=== PATIENT | female | born 1970 | race Caucasian/White ===

== ENCOUNTER → 2018-10-05 08:01 | Outpatient (POV) | payer BC, SELFPAY | PROVIDERS: Visit Provider Dermatology | DX: Z00.00 Encounter for general adult medical examination without abnormal findings (principal) ==

== ENCOUNTER → 2019-09-20 15:21 | Outpatient (POV) | payer BC, SELFPAY | PROVIDERS: Visit Provider Dermatology | DX: Z00.00 Encounter for general adult medical examination without abnormal findings (principal) ==

== ENCOUNTER → 2019-12-14 14:57 | Outpatient (POV) | payer BC, SELFPAY | DX: Z00.00 Encounter for general adult medical examination without abnormal findings (principal) ==

== ENCOUNTER 2020-08-27 15:00 | Outpatient (RCR) | payer BC, SELFPAY | END 2020-08-27 16:20 | disposition home or self-care (01) | LOC: PT 15:00 | PROVIDERS: Visit Provider Orthopaedic Surgery | DX: M76.31 Iliotibial band syndrome, right leg (principal) | CPT/HCPCS: 20560; 97010; 97014; 97033; 97035; 97110; 97163; 97164; G0283 ==

== ENCOUNTER → 2020-09-25 16:13 | Outpatient (POV) | payer BC, SELFPAY | PROVIDERS: Visit Provider Dermatology | DX: Z00.00 Encounter for general adult medical examination without abnormal findings (principal) ==

== ENCOUNTER → 2021-05-08 13:30 | Outpatient (POV) | payer BC, SELFPAY | DX: Z00.00 Encounter for general adult medical examination without abnormal findings (principal) ==

== ENCOUNTER 2022-01-08 13:16 | Outpatient (CLI) | payer BC, SELFPAY ==
[2022-01-08 13:27] VITALS: BMI 28.6
[2022-01-08 13:30] VITALS: BP 120/61; PULSE 64; RESP 18; TEMP 36.8; O2SAT 98
[2022-01-08 14:01] LABS: Basophils # 0.1 K/mm3 (0-0.2); Basophils % 0.5 % (0.1-2.0); Eosinophils # 0.1 K/mm3 (0.0-0.4); Eosinophils % 1.4 % (0.1-12.0); Hematocrit 43.1 % (37.0-47.0); Hemoglobin 13.8 g/dL (12.2-16.2); Lymphocytes # 0.8 K/mm3 (0.7-4.5); Lymphocytes % 8.3 % (10-50); Mean Corpuscular Hemoglobin 27.8 pg (27.0-31.2); Mean Corpuscular Volume 86.9 fl (81-99); Mean Platelet Volume 8.9 fl (7.4-10.4); Monocytes # 0.2 K/mm3 (0.1-1.0); Monocytes % 2.1 % (1.7-9.3); Neutrophils # 8.2 K/mm3 (1.8-7.8); Neutrophils % 87.7 % (37.0-80.0); Platelet Count 417 K/mm3 (142-424); Red Blood Count 4.95 M/mm3 (4.20-5.40); Red Cell Distribution Width 15.3 % (11.5-17.5); White Blood Count 9.3 K/mm3 (4.8-10.8)
[2022-01-08 14:03] LABS: Chloride 106 mmol/L (98-107); MANUAL DIFFERENTIAL MANUAL DIFFERENTIAL (MANUAL DIFF); Potassium 4.6 mmoL/L (3.5-5.1); Sodium 137 mmol/L (136-145)
--- NOTE | 2022-01-08 14:03 | ECG_ITS ---
APPROVED REPORT Exam: Resting ECG HR:85 bpm ECG Measurements Heart Rate 85 AXES LA 160 P 9 QRSd 79 QRS -19 QT 348 T 30 QTc 390 Conclusion SINUS RHYTHM LOW QRS VOLTAGE IN EXTREMITY LEADS [QRS DEFLECTION < 0.5 mV IN LIMB LEADS] BORDERLINE ECG UNCONFIRMED REPORT Electronically signed by : Arjun Cruz MD 01/08/2022 18:11:40
[2022-01-08 14:05] LABS: Alanine Aminotransferase 19 U/L (12-78); Aspartate Amino Transferase 35 U/L (14-36); Blood Urea Nitrogen 25 mg/dl (7-17); Creatinine Clearance Estimated 134 mL/min (50-200); Estimated Glomerular Filt Rate 89 ml/min (>60); GFR (African American) 107 ML/MIN (>60)
[2022-01-08 14:06] LABS: Albumin Level 3.9 g/dl (3.5-5.0); Albumin/Globulin Ratio 1.3 (1.1-1.8); Alkaline Phosphatase 103 U/L (38-126); Anion Gap 9.6 mEq/L (5-15); Bilirubin,Total 0.6 mg/dl (0.2-1.3); Calcium 8.3 mg/dl (8.4-10.2); Carbon Dioxide 26 mmol/L (22.0-30.0); Globulin 2.9 g/dL (1.3-3.2); Glucose 96 mg/dl (74-100); Magnesium 1.7 mg/dl (1.6-2.3); Total Protein,Serum 6.8 g/dl (6.3-8.2)
[2022-01-08 14:25] LABS: Lymphocytes % 10 % (10-50); Monocytes % 1 % (2-9); Neutrophils % 89 % (42-76); Nucleated Red Blood Cells 1; Platelet Estimate Normal; Total Cells Counted 100
[2022-01-08 15:21] VITALS: BP 135/66; PULSE 70; RESP 18; O2SAT 98
[2022-01-08 16:13] LABS: Microscopic, Urine URINE MICROSCOPIC (MICROSCOPIC)
[2022-01-08 16:23] VITALS: BP 128/68; PULSE 69; RESP 18; O2SAT 97
[2022-01-08 16:42] LABS: Appearance,Urine CLEAR (Clear); Bilirubin,Urine Negative (Negative); Blood, Urine Negative (Negative); Color,Urine YELLOW (Yellow); Glucose,Urine (UA) Negative (Negative); Ketones,Urine 1+ (Negative); Leukocyte Esterase,Urine Negative (Negative); Nitrate,Urine Negative (Negative); PH,Urine 6.5 (5.0-8.5); Protein,Urine Negative (Negative); Specific Gravity, Urine 1.015 (1.005-1.030); Urobilinogen,Urine 0.2 EU/dl (0.2)
[2022-01-08 17:14] LABS: RBC,Urine Occasional #/hpf (0-3); WBC,Urine Occasional #/hpf (0-3)
[2022-01-09 08:25] LABS: FSH 1.8 mIU/mL (.); LH 0.7 mIU/mL (.)
== END 2022-01-08 16:23 | disposition home or self-care (01) ==
LOC: INF 13:18
PROVIDERS: Visit Provider Internal Medicine Adolescent Medicine
DX: I95.89 Other hypotension (principal); E86.0 Dehydration
CPT/HCPCS: 80053; 81001; 83001; 83002; 83735; 85007; 85025; 87086; 93005; 96360; 96375; J2405

== ENCOUNTER 2022-12-23 08:36 | Day surgery (SDC) | payer BC, SELFPAY ==
[2022-12-19 11:58] VITALS: BMI 30.1
--- NOTE | 2022-12-23 08:58 | EXP.ANES.CKL ---
[facility] Disclaimer: The information contained in this section may have been updated after the patient was seen, as this information can be updated by other users. Medical History Arthritis Endometriosis Hiatal hernia History of COVID-19 History of gastroesophageal reflux (GERD) Surgical History Gastric banding status H/O laparoscopy History of S/P lumbar spinal fusion Family History Grandmother Family history of cancer Other Family history of myocardial infarction Family history of stroke Social History Smoking Status: Never smoker alcohol intake: never substance use type: denies use current occupational status: employed Travel in the last 8 weeks: Inside the [place] household members: spouse housing: house [facility] Anesthesia Checklist Patient Identification Patient Identification: Arm Band and Verbal (Name & ) Structural Data Admitted From: Home Planned Operative Procedure/s: Colonoscopy Consent for Planned Operative Procedure(s) Verified: Yes NPO Status Verified Time NPO: 00:00 Airway Assessment C-Spine Mobility Assessed: Yes TMJ Mobility Assessed: Yes Dentition: Good Dentition Neurological Assessment Level of Consciousness: Awake Hx Seizures: No Numbness or tingling in extremities: No Anesthesia Plan Anesthesia Risk discussed: Yes Anesthesia Plan: Verified ASA Class: II Anesthesia Type: MAC
[2022-12-23 09:01] VITALS: BP 131/78; PULSE 100; RESP 18; TEMP 37.4; O2SAT 97
--- NOTE | 2022-12-23 09:02 | P.PCN_ITS ---
Procedure: Date: 12/23/22 Patient Date of :: 1970 Procedure Performed:: Colonoscopy Indications:: Screening Performing Provider:: Cornelius Ng MD Referring Provider:: . Sedation:: Monitored anesthesia care Procedure:: After informed consent was obtained the patient was taken to the endoscopy suite. Sedation ensued after the patient was transferred to the left lateral decubitus position. Pulse, blood pressure, and oxygen saturation were monitored throughout the procedure. Digital rectal exam revealed no significant abnormality. The colonoscope was placed in position. The entire colon was eval uated. The colonoscope was carefully removed and the patient was transferred to recovery in stable condition. Please see findings and specimens below for detail. Findings:: Bowel preparation poor Fairly significant spasticity/lack of relaxation Specimens:: None Recommendations:: Repeat colonoscopy in approximately 6 months with alternate/extended bowel preparation Complications:: No immediate Estimated blood obtained (mL): 0
[2022-12-23 09:11] VITALS: O2SAT 97
[2022-12-23 09:45] VITALS: BP 110/72; PULSE 83; RESP 12; TEMP 36.3; O2SAT 96
[2022-12-23 09:55] VITALS: BP 138/75; PULSE 85; RESP 16; O2SAT 99
[2022-12-23 10:05] VITALS: BP 144/84; PULSE 83; RESP 16; O2SAT 97
[2022-12-23 10:15] VITALS: BP 135/76; PULSE 76; RESP 16; TEMP 36.3; O2SAT 99
== END 2022-12-23 10:19 | disposition home or self-care (01) ==
PROVIDERS: PCP Nurse Practitioner Obstetrics & Gynecology; Visit Provider Surgery
PROC: 0DJD8ZZ Inspection of Lower Intestinal Tract, Via Natural or Artificial Opening Endoscopic (ICD-10-PCS; CPT 45378; principal; 2022-12-23 09:30)
DX: Z12.11 Encounter for screening for malignant neoplasm of colon (principal); Z91.199 Patient's noncompliance with other medical treatment and regimen due to unspecified reason; Z79.899 Other long term (current) drug therapy
CPT/HCPCS: 45378; J1610; J2704

== ENCOUNTER → 2023-10-06 17:20 | Outpatient (CLI) | payer BC, SELFPAY ==
[2023-10-06 19:52] LABS: Thyroid Stimulating Hormone 1.09 uIU/mL (0.465-4.68)
== END ==
PROVIDERS: PCP Internal Medicine; Visit Provider Internal Medicine
DX: E03.9 Hypothyroidism, unspecified (principal)
CPT/HCPCS: 84443

== ENCOUNTER 2023-10-16 12:56 | Emergency (ER) | payer BC, SELFPAY ==
--- NOTE | 2023-10-16 13:07 | EXP.UTC ---
Discharge Plan Disposition Patient Disposition: Home, Self-Care Condition: Good Prescriptions Prescriptions: New cyclobenzaprine 10 mg Tablet 10 mg PO BID PRN (Reason: Muscle Spasm) Qty: 20 0RF methylprednisolone 4 mg Tablets,Dose Pack 4 mg PO DIRECTED 6 Days Qty: 21 0RF Rx Instructions: Take 1 pack as directed for 6 days No Action meloxicam [Mobic] 15 mg tablet 15 mg PO DAILY spironolactone 100 mg tablet 100 mg PO DAILY gabapentin 600 mg tablet 600 mg PO BID furosemide 40 mg tablet 40 mg PO DAILY omeprazole 20 mg capsule,delayed release(DR/EC) 20 mg PO BID levothyroxine 50 mcg tablet 50 mcg PO DAILY drospirenone-e.estradiol-lm.FA 3-0.02-0.451 mg (24) (4) tablet 1 tab PO DAILY Rx Instructions: TAKE 1 TABLET BY MOUTH ONCE DAILY semaglutide (weight loss) 0.25 mg/0.5 mL Pen Injector 0.25 mg SQ WEEKLY Rx Instructions: administer weeks 1 through 4 of therapy Referrals Follow up/Referrals: Kai Persaud MD [Primary Care Provider] - See instructions Activity Restrictions/Add. Instructions Additional Instructions/Restrictions: Go home and rest. It would be best if you rested for the next few days. No heavy lifting. No twisting. Take the oral medications as directed. The muscle relaxer (cyclobenzaprine--Flexeril) will make you drowsy, so don't drive or operate heavy machinery after taking it. Don't start the oral steroids (medrol dose pack) until tomorrow, since you had the shots in here today. Follow up with your regular doctor. GO TO THE ER FOR ANY WORSENING SYMPTOMS OR CONCERN, ESPECIALLY BOWEL OR BLADDER ISSUES, SADDLE AREA NUMBNESS, FEVER, ETC Clinical Impressions Clinical Impression: Fall, Low back pain, Left hip pain Discharge ED Provider: Ac Espino [facility] General Stated complaint: ao 10/14/23 fell hurt right left leg pain Time Seen by Provider: 10/16/23 13:22 History of Present Illness Provider Complaint: She states that she fell 2 days ago and came down on her right hip. Since then she has had low back pain and bilateral hip pain since then. She states that she has numbness and tingling radiates down her left leg at times. She has an history of lumbar spine surgery and fusion. She denies any bowel or bladder issues. Related Data Home Medications Medication Instructions Recorded Confirmed meloxicam 15 mg tablet (Mobic) 15 mg PO DAILY Pain 01/07/22 10/16/23 furosemide 40 mg tablet 40 mg PO DAILY Fluid 02/07/22 10/16/23 gabapentin 600 mg tablet 600 mg PO BID Pain 02/07/22 10/16/23 spironolactone 100 mg tablet 100 mg PO DAILY Heart disease 02/07/22 10/16/23 semaglutide (weight loss) 0.25 0.25 mg SQ WEEKLY Weight loss 12/19/22 10/16/23 mg/0.5 mL subcutaneous pen injector omeprazole 20 mg capsule,delayed 20 mg PO BID 02/11/23 10/16/23 release levothyroxine 50 mcg tablet 50 mcg PO DAILY 08/11/23 10/16/23 drospiren-e.estrad-l.mefol 3 1 tab PO DAILY hormone replacement 10/16/23 10/16/23 mg-0.02 mg-0.451 mg(24)/0.451 mg(4)tablet Previous Rx's Medication Instructions Recorded cyclobenzaprine 10 mg tablet 10 mg PO BID PRN Muscle Spasm #20 10/16/23 tabs methylprednisolone 4 mg tablets in 4 mg PO DIRECTED 6 days #21 tabs 10/16/23 a dose pack Allergies Allergy/AdvReac Type Severity Reaction Status Date / Time No Known Allergies Allergy Verified 08/11/23 14:22 [facility] Disclaimer: The information contained in this section may have been updated after the patient was seen, as this information can be updated by other users. Medical History (Updated 10/16/23 @ 15:18 by Ac Espino APRN) Arthritis Chronic eustachian tube dysfunction Endometriosis Fluid level behind tympanic membrane of both ears Hiatal hernia History of COVID-19 History of gastroesophageal reflux (GERD) Surgical History Gastric banding status H/O laparoscopy History of S/P lumbar spinal fusion Family History Grandmother Family history of cancer Other Family history of myocardial infarction Family history of stroke Social History Smoking Status: Never smoker alcohol intake: never substance use type: denies use current occupational status: employed Travel in the last 8 weeks: [place] the [place] household members: spouse housing: house ROS Obtained: Yes All systems reviewed & no additional complaints except as documented Constitutional Constitutional: Denies chills, Denies fever(s) and Denies frequent falls Eyes Eyes: Denies eye discharge ENT Ears, Nose, Mouth, and Throat: Denies dizziness, Denies otalgia, Denies neck pain and Denies sore throat Cardiovascular Cardiovascular: Denies chest pain Respiratory Respiratory: Denies shortness of breath, Denies chest congestion, Denies cough, Denies stridor and Denies wheezing Gastrointestinal Gastrointestingal: Denies nausea or vomiting Musculoskeletal Musculoskeletal: Reports as per HPI, Denies abnormal gait, Reports back pain, Denies neck pain, Denies numbness and Reports tingling Integumentary/Breasts Skin/Breast: Denies rash Neurologic Neurologic: Reports as per HPI, Denies abnormal gait, Denies burning sensations, Denies dizziness, Denies focal weakness, Denies frequent falls, Denies numbness, Reports paresthesias, Reports radicular pain, Denies sensory deficit and Reports tingling Allergic/Immunologic Allergic/Immunologic: Denies wheezing Physical Exam General General appearance: alert and in no apparent distress Head Head exam: atraumatic, normocephalic and normal inspection Eye Eye exam: Present normal appearance, PERRL and EOMI ENT ENT exam: Present normal exam, normal oropharynx, mucous membranes moist, TM's normal bilaterally and normal external ear exam Neck Neck exam: Present normal inspection, full ROM and trachea midline; Absent meningismus or lymphadenopathy Chest Chest inspection: Present normal inspection and symmetric chest wall rise; Absent tenderness Respiratory Respiratory exam: Present normal lung sounds bilaterally; Absent respiratory distress Cardiovascular Cardiovascular exam: Present regular rate and normal rhythm; Absent JVD Abdominal Exam Abdominal exam: Present soft and normal bowel sounds; Absent distention, tenderness or guarding Extremities Exam Extremities exam: Present normal capillary refill; Absent calf tenderness Expanded Lower Extremity Exam Left: Hip/Pelvis exam: Present normal inspection, full ROM and pelvis stable; Absent tenderness, swelling, ecchymosis, deformity, dislocation, external rotation, internal rotation, shortening of leg, pain on hip/pelvis palpation, hip pain on leg movement, erythema, crepitus, laceration or abrasion Upper leg exam: Present normal inspection and full ROM; Absent tenderness Knee exam: Present normal inspection and full ROM; Absent tenderness Lower leg exam: Present normal inspection, full ROM and Achilles tendon intact; Absent tenderness or Homans' sign Ankle exam: Present normal inspection and full ROM; Absent tenderness Foot/toe exam: Present normal inspection and full ROM; Absent tenderness Neurovascular/Tendon exam: Present normal capillary refill and normal fine/light touch; Absent pulse deficit, motor deficit, sensory deficit, tendon deficit or extremity cold to touch Gait: observed and normal Right: Hip/Pelvis exam: Present normal inspection and full ROM; Absent tenderness, pelvis stable, swelling, ecchymosis, deformity, dislocation, external rotation, internal rotation, shortening of leg, pain on hip/pelvis palpation, hip pain on leg movement, erythema, crepitus, laceration or abrasion Upper leg exam: Present normal inspection and full ROM; Absent tenderness Knee exam: Present normal inspection and full ROM; Absent tenderness Lower leg exam: Present normal inspection and full ROM; Absent tenderness Ankle exam: Present normal inspection and full ROM; Absent tenderness Foot/toe exam: Present normal inspection and full ROM; Absent tenderness Neurovascular/Tendon exam: Present normal capillary refill and normal fine/light touch; Absent pulse deficit, motor deficit, sensory deficit, tendon deficit or extremity cold to touch Gait: observed and normal Back Exam Back exam: Present normal inspection; Absent tenderness Neurological Exam Neurological exam: Present alert, oriented X3, CN II-XII intact, normal gait and reflexes normal; Absent motor sensory deficit Expanded Neurological Exam Speech: Present fluid speech Cranial nerves: Normal: EOM function (II, III, IV, ), facial sensation (V), facial palsy (VII), gag reflex (IX), spinal accessory function (XI) and tongue deviation (XII) Cerebellar function: normal gait Motor strength - LUE: 5/5 Motor strength - RUE: 5/5 Motor strength - LLE: 5/5 Motor strength - RLE: 5/5 Sensory exam upper extremity: Normal: light touch and 2 point discrimination Sensory exam lower extremity: Normal: light touch and 2 point discrimination DTR: 2+: biceps (L), biceps (R), patellar (L), patellar (R), Achilles tendon (L) and Achilles tendon (R) Spinal cord function: Absent saddle anesthesia Psychiatric Psychiatric exam: Present normal affect and normal mood Skin Skin exam: Present warm, dry, intact and normal color Lymphatic Lymphatic Findings: no adenopathy Medical Decision Making Medical Records Medical records reviewed: No I reviewed the patient's medical records. Cesar Inquiry Pt receiving controlled substance: No Radiology Data #1: Image(s): Hip Image Reviewed: Yes I reviewed the patient's radiology image and Yes I have reviewed radiologist's interpretation Preliminary Findings: No Fracture Seen FINAL REPORT CLINICAL HISTORY: Right hip pain after fall COMPARISON: None FINDINGS: RIGHT HIP Two views of the right hip with an AP view of the pelvis demonstrate no acute fracture or dislocation. The joint spaces appear normal. The visualized bony structures are well aligned. No soft tissue abnormality is seen. IMPRESSION: No acute bony abnormality. Reviewed, Interpreted and Dictated by Alec Larry MD Transcribed by Telma Albright Authenticated and . [facility] #2: Image(s): Hip Image Reviewed: Yes I reviewed the patient's radiology image and Yes I have reviewed radiologist's interpretation Preliminary Findings: No Fracture Seen FINAL REPORT CLINICAL HISTORY: FALL pain mainly in left hip COMPARISON: None FINDINGS: LEFT HIP: Two views of the left hip demonstrate no acute fracture or dislocation. The joint spaces appear normal. The visualized bony structures are well aligned. No soft tissue abnormality is seen. IMPRESSION: No acute bony abnormality. Reviewed, Interpreted and Dictated by Alec Larry MD Transcribed by Telma Albright Authenticated and [facility] #3: Image(s): L-Spine Image Reviewed: Yes I reviewed the patient's radiology image and Yes I have reviewed radiologist's interpretation Preliminary Findings: Abnormal and No Fracture Seen FINAL REPORT CLINICAL HISTORY: Low back pain after fall COMPARISON: None FINDINGS: 3 views of the lumbar spine were obtained. There is posterior fusion hardware bridging L3-S1. The hardware is intact. There is no evidence of fracture or dislocation. There is spondylolisthesis of L2 on L3. There is spondylolisthesis of L5 on S1 measuring approximately 1 cm. There is lumbar scoliosis convex to the left measuring about 10 degrees. No paraspinous soft tissue abnormalities identified. IMPRESSION: L3-S1 fusion with spondylolisthesis of L2 on L3 and L5 on S1. Lumbar scoliosis convex to the left. Reviewed, Interpreted and Dictated by Alec Larry MD Transcribed by Telma Albright Authenticated and . [facility]
[2023-10-16 13:10] VITALS: BP 113/78; PULSE 79; RESP 20; TEMP 36.7; O2SAT 98; BMI 22.3
--- NOTE | 2023-10-16 13:20 | XR_ITS ---
FINAL REPORT CLINICAL HISTORY: FALL pain mainly in left hip COMPARISON: None FINDINGS: LEFT HIP: Two views of the left hip demonstrate no acute fracture or dislocation. The joint spaces appear normal. The visualized bony structures are well aligned. No soft tissue abnormality is seen. IMPRESSION: No acute bony abnormality. Reviewed, Interpreted and Dictated by Alec Larry MD Transcribed by Telma Albright Authenticated and [facility]
--- NOTE | 2023-10-16 13:20 | XR_ITS ---
FINAL REPORT CLINICAL HISTORY: Right hip pain after fall COMPARISON: None FINDINGS: RIGHT HIP Two views of the right hip with an AP view of the pelvis demonstrate no acute fracture or dislocation. The joint spaces appear normal. The visualized bony structures are well aligned. No soft tissue abnormality is seen. IMPRESSION: No acute bony abnormality. Reviewed, Interpreted and Dictated by Alec Larry MD Transcribed by Telma Albright Authenticated and [facility]
--- NOTE | 2023-10-16 13:20 | XR_ITS ---
FINAL REPORT CLINICAL HISTORY: Low back pain after fall COMPARISON: None FINDINGS: 3 views of the lumbar spine were obtained. There is posterior fusion hardware bridging L3-S1. The hardware is intact. There is no evidence of fracture or dislocation. There is spondylolisthesis of L2 on L3. There is spondylolisthesis of L5 on S1 measuring approximately 1 cm. There is lumbar scoliosis convex to the left measuring about 10 degrees. No paraspinous soft tissue abnormalities identified. IMPRESSION: L3-S1 fusion with spondylolisthesis of L2 on L3 and L5 on S1. Lumbar scoliosis convex to the left. Reviewed, Interpreted and Dictated by Alec Larry MD Transcribed by Telma Albright Authenticated and . [facility]
[2023-10-16] MEDS: KETOROLAC 60MG/2ML VIAL 60 MG IM (15:10)
[2023-10-16] MEDS: METHYLPREDNISOLONE SOD SUCC 125MG VIAL 125 MG IM (15:10)
[2023-10-16 15:19] VITALS: BP 113/78; PULSE 79; RESP 20; TEMP 36.7; O2SAT 98
== END 2023-10-16 15:25 | disposition home or self-care (01) ==
PROVIDERS: Emergency Provider Nurse Practitioner Family; PCP Internal Medicine
DX: M25.552 Pain in left hip (principal); M25.551 Pain in right hip; M54.59 Other low back pain; W19.XXXA Unspecified fall, initial encounter
CPT/HCPCS: 72100; 73502; 96372; 99204; 99212; G0463

== ENCOUNTER 2023-12-29 11:16 | Outpatient (POV) | payer BC, SELFPAY | END 2023-12-29 23:59 | disposition home or self-care (01) | LOC: SC 11:16 | PROVIDERS: PCP Internal Medicine; Visit Provider Dermatology | DX: Z00.00 Encounter for general adult medical examination without abnormal findings (principal) ==

== ENCOUNTER 2024-03-07 13:22 | Outpatient (POV) | payer BC, SELFPAY ==
--- OUTSIDE RECORDS SUMMARY | 2024-03-07 13:25 | XMS_ITS | Clinical Summary ---
Author Name Unknown Address [address] [place] [address] Phone Organization [facility] Address [address] [place] [address] Phone Care Team Providers Care Radar Repairer Name Role Phone Jaylen CUNNINGHAM, Srinivas Barrera Unavailable [phone] AZALEA MERINO MD Primary Care Provider [phone] Reason for Visit and Chief Complaint INJECTION Problems Includes: Problems addressed during this encounter and other active Problems All Visits Onset Date Resolved Date Provider Condition S tatus Joint Pain in the Right Hip 02/07/2021 Stefano Sacnhez MD Active Last Documented On 1 1:35PM ; [facility] Joint Pain, Localized in the Knee 02/07/2016 lilo Sanchez MD Active Last Documented On 6 3:35PM ; [facility] Plan of Treatment Future Appointments Date Time Location Provi carey INJECTION 03/25/2024 8:00AM [facility] Stevie Goodrich PA-C Last Documented On 4 9:41AM ; [facility] Assessments Includes: Assessments from this encounter No Assessments Recorded Medical Equipment - Implanted Devices Includes: Current Devices No Medical Equipment Recorded Medications Includes: Medications discussed during this encounter and other current Medications Current Medications (continue as prescribed) [facility] Glucosamine HCl Oral Tablet 10/25/2020 Provider: Diagnosis: Last Documented On 1 1:32PM By Susanne Quiroz ; [facility] Mobic 15 MG Oral Tablet 10/25/2020 Provider: Diagnosis: Last Documented On 1 1:33PM By Susanne Quiroz ; [facility] Spironolactone 25 MG Oral Tablet 10/25/2020 Provider : Diagnosis: Last Documented On 1 1:33PM By Susanne Quiroz ; [facility] Beyaz 3-0.02-0.451 MG Oral Tablet 10/25/2020 Provide r: Diagnosis: Last Documented On 1 1:33PM By Susanne Quiroz ; [facility] Gabapentin 300 MG Oral Capsule 10/25/2020 Provider: Diagnosis: Last Documented On 1 1:33PM By Susanne Quiroz ; [facility] Lasix 20 MG Oral Tablet 10/25/2020 Provider: Diagnosis: Last Documented On 1 1:34PM By Susanne Quiroz ; [facility] Medications Administered Includes: Administered Medications from this encounter No Administered Medications Recorded Results Includes: Results discussed during this encounter No Results Recorded For Specified Dates History of Present Illness Includes: History of Present Illness from this encounter No History of Present Illness Recorded Social History No Social History Recorded - Smoking Status Unknown Procedures and Surgical History Includes: Procedures from this encounter Procedures Code Diagnosis Performing Provider Service Location Service Date DRAIN/INJECT, JOINT/BURSA (Bilateral Procedure) Bilateral primary osteoarthritis of knee Stevie Goodrich PA-C [facility] 06/10/2023 Last Documented On 3 2:17PM ; [facility] Triamcinolone/Kenalog, 10mg per cc [id number] Bilateral primary osteoarthritis of knee Stevie Kp FATIMA [facility] 06/10/2023 Last Documented On 3 2:17PM ; [facility] Medical History Includes: Medical History addressed during this encounter No Medical History Recorded Family History Includes: Family History addressed during this encounter No Family History Recorded Review of Systems Includes: Review of Systems from this encounter No Review of Systems Recorded Mental Status Includes: Mental Status from this encounter No Mental Status Recorded Functional Status Includes: Functional Status from this encounter No Functional Status Recorded Physical Exam Includes: Physical Exam from this encounter No Physical Exam Recorded Allergies Includes: Active Allergies No Known Allergies Encounters Encounter Provider Location Date Check-In Time Check-Out Time Diagnosis INJECTION Stevie Goodrich PA-C [facility] 3 9:20AM 9:44AM Insurance Includes: Active Insurance Policies Plan Name Member ID Group # Subscriber Relationship Effect ashly Dates 1 - [facility] [id number] NADERSELENE DAVILAJOCELINE Self 10/19/2014 - Unknown Clinical Notes Includes: Clinical Notes from this encounter No Clinical Notes Recorded
--- OUTSIDE RECORDS SUMMARY | 2024-03-07 13:25 | XMS_ITS | Clinical Summary ---
Author Name Unknown Address [address] [place] [address] Phone Organization [facility] Address [address] [place] [address] Phone Care Team Providers Care Manufactured Buildings Repairer Name Role Phone Jaylen CUNNINGHAM, Srinivas Barrera Unavailable [phone] AZALEA MERINO MD Primary Care Provider [phone] Reason for Visit and Chief Complaint INJECTION Problems Includes: Problems addressed during this encounter and other active Problems All Visits Onset Date Resolved Date Provider Condition S tatus Joint Pain in the Right Hip 02/07/2021 Stefano Sanchez MD Active Last Documented On 1 1:35PM ; [facility] Joint Pain, Localized in the Knee 02/07/2016 lilo Sanchez MD Active Last Documented On 6 3:35PM ; [facility] Plan of Treatment Future Appointments Date Time Location Provi carey INJECTION 03/25/2024 8:00AM [facility] Stevie Goodrich PA-C Last Documented On 4 9:41AM ; [facility] Assessments Includes: Assessments from this encounter No Assessments Recorded Medical Equipment - Implanted Devices Includes: Current Devices No Medical Equipment Recorded Medications Includes: Medications discussed during this encounter and other current Medications Current Medications (continue as prescribed) [facility] Glucosamine HCl Oral Tablet 10/25/2020 Provider: Diagnosis: Last Documented On 1 1:32PM By Susanne Quiroz ; [facility] Mobic 15 MG Oral Tablet 10/25/2020 Provider: Diagnosis: Last Documented On 1 1:33PM By Susanne Quiroz ; [facility] Spironolactone 25 MG Oral Tablet 10/25/2020 Provider : Diagnosis: Last Documented On 1 1:33PM By Susanne Quiroz ; [facility] Beyaz 3-0.02-0.451 MG Oral Tablet 10/25/2020 Provide r: Diagnosis: Last Documented On 1 1:33PM By Susanne Quiroz ; [facility] Gabapentin 300 MG Oral Capsule 10/25/2020 Provider: Diagnosis: Last Documented On 1 1:33PM By Susanne Quiroz ; [facility] Lasix 20 MG Oral Tablet 10/25/2020 Provider: Diagnosis: Last Documented On 1 1:34PM By Susanne Quiroz ; [facility] Medications Administered Includes: Administered Medications from this encounter No Administered Medications Recorded Results Includes: Results discussed during this encounter No Results Recorded For Specified Dates History of Present Illness Includes: History of Present Illness from this encounter No History of Present Illness Recorded Social History No Social History Recorded - Smoking Status Unknown Medical History Includes: Medical History addressed during [...] Check-Out Time Diagnosis INJECTION Stevie Goodrich PA-C [facility] 3 9:17AM 9:48AM Insurance Includes: Active Insurance Policies Plan Name Member ID Group # Subscriber Relationship Effect ashly Dates 1 - [facility] [id number] SUSANNA ESPARZA Self 10/19/2014 - Unknown Clinical Notes Includes: Clinical Notes from this encounter No Clinical Notes Recorded
--- OUTSIDE RECORDS SUMMARY | 2024-03-07 13:25 | XMS_ITS | Clinical Summary ---
Author Name Unknown Address [address] [place] [address] Phone Organization [facility] , [facility] Address [address] [place] [address] Phone Care Team Providers Care Director Database Name Role Phone Jaylen CUNNINGHAM, Srinivas Barrera Unavailable [phone] AZALEA MERINO MD Primary Care Provider [phone] Reason for Visit and Chief Complaint INJECTION Problems Includes: Problems addressed during this encounter and other active Problems All Visits Onset Date Resolved Date Provider Condition S tatus Joint Pain in the Right Hip 02/07/2021 Stefano Sanchez MD Active Last Documented On 1 1:35PM ; [facility], [facility] Joint Pain, Localized in the Knee 02/07/2016 lilo Sanchez MD Active Last Documented On 6 3:35PM ; [facility], [facility] Plan of Treatment Future Appointments Date Time Location Provi carey INJECTION 03/25/2024 8:00AM [facility] Stevie Goodrich PA-C Last Documented On 4 9:41AM ; [facility], [facility] Assessments Includes: Assessments from this encounter No Assessments Recorded Medical Equipment - Implanted Devices Includes: Current Devices No Medical Equipment Recorded Medications Includes: Medications discussed during this encounter and other current Medications Current Medications (continue as prescribed) [facility] Glucosamine HCl Oral Tablet 10/25/2020 Provider: Diagnosis: Last Documented On 1 1:32PM By Susanne Quiroz ; [facility], [facility] Mobic 15 MG Oral Tablet 10/25/2020 Provider: Diagnosis: Last Documented On 1 1:33PM By Susanne Quiroz ; [facility], [facility] Spironolactone 25 MG Oral Tablet 10/25/2020 Provider : Diagnosis: Last Documented On 1 1:33PM By Susanne Quiroz ; [facility], [facility] Beyaz 3-0.02-0.451 MG Oral Tablet 10/25/2020 Provide r: Diagnosis: Last Documented On 1 1:33PM By Susanne Quiroz ; [facility], [facility] Gabapentin 300 MG Oral Capsule 10/25/2020 Provider: Diagnosis: Last Documented On 1 1:33PM By Susanne Quiroz ; [facility], [facility] Lasix 20 MG Oral Tablet 10/25/2020 Provider: Diagnosis: Last Documented On 1 1:34PM By Susanne Quiroz ; [facility], [facility] Medications Administered Includes: Administered Medications from this [...] Procedure) Bilateral primary osteoarthritis of knee Stevie Kp [facility] 09/30/2023 Last Documented On 3 7:34AM ; [facility] Triamcinolone/Kenalog, 10mg per cc J3301 Bilateral primary osteoarthritis of knee Stevie Kp [facility] 09/30/2023 Last Documented On 3 7:34AM ; [facility], [facility] Medical History Includes: Medical History addressed during [...] Check-Out Time Diagnosis INJECTION Stevie Goodrich PA-C [facility] 3 9:33AM 10:16AM Insurance Includes: Active Insurance Policies Plan Name Member ID Group # Subscriber Relationship Effect ashly Dates 1 - [facility] [id number] SUSANNA ESPARZA Self 10/19/2014 - Unknown Clinical Notes Includes: Clinical Notes from this encounter No Clinical Notes Recorded
--- OUTSIDE RECORDS SUMMARY | 2024-03-07 13:25 | XMS_ITS | Clinical Summary ---
Author Name Unknown Address [address] [place] [address] Phone Organization [facility] , [facility] Address [address] [place] [address] Phone Care Team Providers Care Correctional Manager Name Role Phone Jaylen CUNNINGHAM, Srinivas Barrera Unavailable [phone] AZALEA MERINO MD Primary Care Provider [phone] Reason for Visit and Chief Complaint INJECTION Problems Includes: Problems addressed during this encounter and other active Problems All Visits Onset Date Resolved Date Provider Condition S tatus Joint Pain in the Right Hip 02/07/2021 Stefano Sanchez MD Active Last Documented On 1 1:35PM ; [facility], [facility] Joint Pain, Localized in the Knee 02/07/2016 lilo Sanchez MD Active Last Documented On 6 3:35PM ; [facility], [facility] Plan of Treatment Future Appointments Date Time Location Provi carey INJECTION 03/25/2024 8:00AM [facility] Stevie Goodrich PA-C Last Documented On 4 9:41AM ; [facility], [facility] Assessments Includes: Assessments from this encounter No Assessments Recorded Medical Equipment - Implanted Devices Includes: Current Devices No Medical Equipment Recorded Medications Includes: Medications discussed during this encounter and other current Medications Current Medications (continue as prescribed) [facility] Glucosamine HCl Oral Tablet 10/25/2020 Provider: Diagnosis: Last Documented On 1 1:32PM By Susanne Quiroz ; [facility] Mobic 15 MG Oral Tablet 10/25/2020 Provider: Diagnosis: Last Documented On 1 1:33PM By Susanne Quiroz ; [facility] Spironolactone 25 MG Oral Tablet 10/25/2020 Provider : Diagnosis: Last Documented On 1 1:33PM By Susanne Quiroz ; [facility] Beyaz 3-0.02-0.451 MG Oral Tablet 10/25/2020 Provide r: Diagnosis: Last Documented On 1 1:33PM By Susanne Quiroz ; [facility] Gabapentin 300 MG Oral Capsule 10/25/2020 Provider: Diagnosis: Last Documented On 1 1:33PM By Susanne Quiroz ; [facility] Lasix 20 MG Oral Tablet 10/25/2020 Provider: Diagnosis: Last Documented On 1 1:34PM By Susanne Quiroz ; [facility], [facility] Medications Administered Includes: Administered [...] Date Check-In Time Check-Out Time Diagnosis INJECTION Stveie Goodrich PA-C [facility] 3 8:41AM 9:12AM Insurance Includes: Active Insurance Policies Plan Name Member ID Group # Subscriber Relationship Effect ashly Dates 1 - [facility] [id number] SUSANNA ESPARZA Self 10/19/2014 - Unknown Clinical Notes Includes: Clinical Notes from this encounter No Clinical Notes Recorded
--- OUTSIDE RECORDS SUMMARY | 2024-03-07 13:25 | XMS_ITS ---
Author Name Unknown Address [address] [place] [address] Phone Organization [facility] , [facility] Address [address] [place] [address] Phone Care Team Providers Care Singer And Unloader Name Role Phone Jaylen CUNNINGHAM, Srinivas Barrera Unavailable [phone] AZALEA MERINO MD Primary Care Provider [phone] Reason for Referral Date Encounter Description Provider Reason for Referral 02/07/21 INJECTION Stefano maurer MD Referral To Physician 10/25/20 INJECTION Stefano maurer MD Referral To Physician - see pcp for bp 07/12/20 NEW PROBLEM/EST PT Stefano Sanchez MD Referral To Physician Problems Includes: Active, inactive, and resolved Problems All Visits Onset Date Resolved Date Provider Condition S tatus Joint Pain in the Right Hip 02/07/2021 Stefano Sanchez MD Active Last Documented On 1 1:35PM ; [facility] Joint Pain, Localized in the Knee 02/07/2016 lilo Sanchez MD Active Last Documented On 6 3:35PM ; [facility] Plan of Treatment Future Appointments Date Time Location Provi carey INJECTION 03/25/2024 8:00AM [facility] Stevie Goodrich PA-C Last Documented On 4 9:41AM ; [facility] Instructions to patient Instructions for patient See PCP for weight management Last Documented On 1 1:30PM ; [facility] Instructions for patient See PCP for weight management Last Documented On 0 3:36PM ; [facility] Instructions for patient See PCP for weight management Last Documented On 0 8:18AM ; [facility] Instructions for patient See PCP for weight management Last Documented On 9 3:30PM ; [facility] Instructions for patient See PCP for weight management Last Documented On 8 3:00PM ; [facility] Instructions for patient See PCP for weight management Last Documented On 7 8:10AM ; [facility] Instructions for patient See PCP for weight management Last Documented On 7 3:40PM ; [facility] Instructions for patient See PCP for weight management Last Documented On 7 3:19PM ; [facility] Instructions for patient See PCP for weight management Last Documented On 7 10:25AM ; [facility] Instructions for patient See PCP for weight management Last Documented On 6 9:01AM ; [facility] Instructions for patient See PCP for weight management Last Documented On 6 8:32AM ; [facility] Instructions for patient See PCP for weight management Last Documented On 6 8:16AM ; [facility] Instructions for patient See PCP for weight management Last Documented On 6 9:01AM ; [facility] Instructions for patient See PCP for weight management Last Documented On 6 9:26AM ; [facility] Assessments Includes: Assessments for all patient encounters No Assessments Recorded Instructions Includes: Instructions for all patient encounters Instructions to patient Instructions for patient See PCP for weight management Last Documented On 1 1:30PM ; [facility] Instructions for patient See PCP for weight management Last Documented On 0 3:36PM ; [facility] Instructions for patient See PCP for weight management Last Documented On 0 8:18AM ; [facility] Instructions for patient See PCP for weight management Last Documented On 9 3:30PM ; [facility] Instructions for patient See PCP for weight management Last Documented On 8 3:00PM ; [facility] Instructions for patient See PCP for weight management Last Documented On 7 8:10AM ; [facility] Instructions for patient See PCP for weight management Last Documented On 7 3:40PM ; [facility] Instructions for patient See PCP for weight management Last Documented On 7 3:19PM ; [facility] Instructions for patient See PCP for weight management Last Documented On 7 10:25AM ; [facility] Instructions for patient See PCP for weight management Last Documented On 6 9:01AM ; [facility] Instructions for patient See PCP for weight management Last Documented On 6 8:32AM ; [facility] Instructions for patient See PCP for weight management Last Documented On 6 8:16AM ; [facility] Instructions for patient See PCP for weight management Last Documented On 6 9:01AM ; [facility] Instructions for patient See PCP for weight management Last Documented On 6 9:26AM ; [facility] Medical Equipment - Implanted Devices Includes: Current and historical Devices No Medical Equipment Recorded Medications Includes: Current and historical Medications Current Medications (continue as prescribed) [facility] Glucosamine HCl Oral Tablet 10/25/2020 Provider: Diagnosis: Last Documented On 1 1:32PM By Susanne Quiroz ; [facility], [facility] Mobic 15 MG Oral Tablet 10/25/2020 Provider: Diagnosis: Last Documented On 1 1:33PM By Susanne Quirzo ; [facility], [facility] Spironolactone 25 MG Oral Tablet 10/25/2020 Provider : Diagnosis: Last Documented On 1 1:33PM By Susanne Quiroz ; [facility], [facility] Beyaz 3-0.02-0.451 MG Oral Tablet 10/25/2020 Provide r: Diagnosis: Last Documented On 1 1:33PM By Susanne Quiroz ; [facility], [facility] Gabapentin 300 MG Oral Capsule 10/25/2020 Provider: Diagnosis: Last Documented On 1 1:33PM By Susanne Quiroz ; [facility] Lasix 20 MG Oral Tablet 10/25/2020 Provider: Diagnosis: Last Documented On 1 1:34PM By Susanne Quiroz ; [facility] Past Medications on file [facility] MSM 1000MG Oral Capsule 06/03/2018 - 01/05/2020 Pr ovider: Diagnosis: Last Documented On 0 8:58AM By Luba Maher ; [facility] Mobic 15 MG Tablet 08/07/2016 - 10/25/2020 Provider: Diagnosis: Last Documented On 1 1:33PM By Susanne Quiroz ; [facility] Spironolactone 25 MG Tablet 08/07/2016 - 10/25/2020 Pr ovider: Diagnosis: Last Documented On 1 1:33PM By Susanne Quiroz ; [facility], [facility] Glucosamine HCl Tablet 08/07/2016 - 10/25/2020 Pro vider: Diagnosis: Last Documented On 1 1:32PM By Susanne Quiroz ; [facility] Lilia Magnesium-Potassium 250-100 MG Tablet 08/07/2016 - 01/05/2020 Provider: Diagnosis: Last Documented On 0 8:58AM By Luba Maher ; [facility] Gabapentin 300 MG OR CAPS 09/18/2014 - 10/25/2020 Prov ider: Diagnosis: Last Documented On 1 1:33PM By Susanne Quiroz ; [facility] CeleBREX 200 MG OR CAPS 09/18/2014 - 08/07/2016 Provid er: Diagnosis: Last Documented On 6 10:00AM By Jocelyn Will ; [facility] Beyaz 3-0.02-0.451 MG OR TABS 09/18/2014 - 10/25/2020 Provider: Diagnosis: Last Documented On 1 1:33PM By Susanne Quiroz ; [facility] Belviq 10 MG OR TABS 09/18/2014 - 08/07/2016 Provider: Diagnosis: Last Documented On 6 9:59AM By Jocelyn Will ; [facility], [facility] Lasix 20 MG OR TABS 09/18/2014 - 10/25/2020 Provider: Diagnosis: Last Documented On 1 1:34PM By Susanne Quiroz ; [facility], [facility] Medications Administered Includes: Administered Medications in patient's chart No Administered Medications Recorded Results Includes: Results from 03/07/2023 through 03/07/2024 No Results Recorded For Specified Dates History of Present Illness History of Present Illness not supported for this document type No History of Present Illness Recorded Social History Description Last Updated Non-smoker 07/12/2020 Last Documented On 0 4:28PM ; [facility] Caffeine use 08/07/2016 Last Documented On 6 8:56AM ; [facility] Exercising regularly 08/07/2016 Last Documented On 6 8:56AM ; [facility] Not a current smoker 08/07/2016 Last Documented On 6 8:56AM ; [facility] Not using alcohol 08/07/2016 Last Documented On 6 8:56AM ; [facility] Not using drugs 08/07/2016 Last Documented On 6 8:56AM ; [facility], [facility] Recent change in diet Low-Carb 6 Last Documented On 6 8:56AM ; [facility] No tobacco use 09/18/2014 Last Documented On 4 10:07AM ; [facility] Smoking status : Never smoker 09/18/2014 Last Documented On 4 10:07AM ; [facility], [facility] Procedures and Surgical History Includes: Procedures from 03/07/2023 through 03/07/2024 Procedures Code Diagnosis Performing Provider Service Location Service Date Triamcinolone/Ke nalog, 10mg per cc J3301 Bilateral primary osteoarthritis of knee Stevie Goodrich PA-C [facility] 12/23/2023 Last Documented On 4 12:03PM ; [facility], [facility] DRAIN/INJECT, JOINT/BURSA (Bilateral Procedure) Bilateral primary osteoarthritis of knee Stevie Goodrich PA-C [facility] 12/23/2023 Last Documented On 4 12:03PM ; [facility] Triamcinolone/Kenalog, 10mg per cc J3301 Bilateral primary osteoarthritis of knee Stevie BARGER-C [facility] 09/30/2023 Last Documented On 3 7:34AM ; [facility] DRAIN/INJECT, JOINT/BURSA (Bilateral Procedure) Bilateral primary osteoarthritis of knee Stevie BARGER-C [facility] 09/30/2023 Last Documented On 3 7:34AM ; [facility] DRAIN/INJECT, JOINT/BURSA (Bilateral Procedure) Bilateral primary osteoarthritis of knee Stevie MARTINESC [facility] 06/10/2023 Last Documented On 3 2:17PM ; [facility] Triamcinolone/Kenalog, 10mg per cc J3301 Bilateral primary osteoarthritis of knee Stevie BARGER-Darnell [facility] 06/10/2023 Last Documented On 3 2:17PM ; [facility] Surgical History Last Updated History of back surgery 2014- X2 (L4-L5) - Nerve 08/07/2016 Last Documented On 6 8:56AM ; [facility] Medical History Includes: Medical History in patient's chart Description Last Updated History of osteoporosis 01/05/2020 Last Documented On 0 11:38AM ; [facility] I-Aokhdvk-[id number] ~Iug-Adlf-609 9 ~Gastric Sleeve-2015 ~Laproscopy-2004 ~Lasix-2010 ~Heartburn 08/07/2016 Last Documented On 6 8:56AM ; [facility] Arthritic joint problems 08/07/2016 Last Documented On 6 8:56AM ; [facility] A recent injection 08/07/2016 Last Documented On 6 8:56AM ; [facility] Family History Includes: Family History in patient's chart Description Last Updated Family history of hypertension 0 Last Documented On 0 11:38AM ; [facility] Family history of osteoporosis 0 Last Documented On 0 11:38AM ; [facility] Family history of thromboembolic disease 01/05/2020 Last Documented On 0 11:38AM ; [facility] Stoke- Father 08/07/2016 Last Documented On 6 8:56AM ; [facility] Maternal history of family history of he art disease 08/07/2016 Last Documented On 6 8:56AM ; [facility] Maternal history of hypertension 016 Last Documented On 6 8:56AM ; [facility] Maternal history of thromboembolic disea se 08/07/2016 Last Documented On 6 8:56AM ; [facility] Review of Systems Review of Systems not supported for this document type No Review of Systems Recorded Mental Status No Mental Status Recorded Functional Status No Functional Status Recorded Physical Exam Physical Exam not supported for this document type No Physical Exam Recorded Immunizations Includes: Immunizations in patient's chart Vaccine Dose # Date Site Reaction(s) Status Source Influenza 1 07/03/2020 Complete (Reported) Patient Last Documented On 1 1:37PM ; [facility] PCV (Pneumovax 23) 1 10/25/2020 Complete (Refused - Patient objection) [facility] Last Documented On 1 1:37PM ; [facility] Allergies Includes: Active, inactive, and resolved Allergies No Known Allergies Encounters Includes: Encounters from 03/07/2023 through 03/07/2024 Encounter Provider Location Date Check-In Time Check-Out Time Diagnosis INJECTION Stevie Goodrich PA-C [facility] 4 9:08AM 9:21AM INJECTION Stevie Goodrich PA-C [facility] 3 9:33AM 10:16AM INJECTION Stevie Goodrich PA-C [facility] 3 9:20AM 9:44AM Insurance Includes: Active Insurance Policies Plan Name Member ID Group # Subscriber Relationship Effect ashly Dates 1 - [facility] [id number] SUSANNA ESPARZA Self 10/19/2014 - Unknown Clinical Notes Includes: Signed Clinical Notes starting from 10/02/2022 No Clinical Notes Recorded
--- OUTSIDE RECORDS SUMMARY | 2024-03-07 13:25 | XMS_ITS | Clinical Summary ---
Author Name Unknown Address [address] [place] [address] Phone Organization [facility] , [facility] Address [address] [place] [address] Phone Care Team Providers Care Medical Claims Manager Name Role Phone Jaylen CUNNINGHAM, Srinivas Barrera Unavailable [phone] AZALEA MERINO MD Primary Care Provider [phone] Reason for Visit and Chief Complaint INJECTION Problems Includes: Problems addressed during this encounter and other active Problems All Visits Onset Date Resolved Date Provider Condition S tatus Joint Pain in the Right Hip 02/07/2021 Stefano Sanchez MD Active Last Documented On 1 1:35PM ; [facility], [facility] Joint Pain, Localized in the Knee 02/07/2016 lilo Sanchez MD Active Last Documented On 6 3:35PM ; [facility], [facility] Plan of Treatment Future Appointments Date Time Location Provi carey INJECTION 03/25/2024 8:00AM [facility] Stevie Goodrich PA-C Last Documented On 4 9:41AM ; [facility], [facility] Assessments Includes: Assessments from this encounter No Assessments Recorded Medical Equipment - Implanted Devices Includes: Current Devices No Medical Equipment Recorded Medications Includes: Medications discussed during this encounter and other current Medications Current Medications (continue as prescribed) [facility] Glucosamine HCl Oral Tablet 10/25/2020 Provider: Diagnosis: Last Documented On 1 1:32PM By Susanne Quiroz ; [facility], [facility] Mobic 15 MG Oral Tablet 10/25/2020 Provider: Diagnosis: Last Documented On 1 1:33PM By Susanne Quiroz ; [facility], [facility] Spironolactone 25 MG Oral Tablet 10/25/2020 Provider : Diagnosis: Last Documented On 1 1:33PM By Susanne Quiroz ; [facility], [facility] Beyaz 3-0.02-0.451 MG Oral Tablet 10/25/2020 Provide r: Diagnosis: Last Documented On 1 1:33PM By Susanne Quiroz ; [facility], [facility] Gabapentin 300 MG Oral Capsule 10/25/2020 Provider: Diagnosis: Last Documented On 1 1:33PM By Susanne Quiroz ; [facility], [facility] Lasix 20 MG Oral Tablet 10/25/2020 Provider: Diagnosis: Last Documented On 1 1:34PM By Susanne Quiroz ; [facility], [facility] Medications Administered Includes: Administered Medications from this [...] primary osteoarthritis of knee Stevie Goodrich PA-C [facility] 12/23/2023 Last Documented On 4 12:03PM ; [facility], [facility] Triamcinolone/Kenalog, 10mg per cc J3301 Bilateral primary osteoarthritis of knee Stevie Goodrich PA-C [facility] 12/23/2023 Last Documented On 4 12:03PM ; [facility], [facility] Medical History Includes: Medical History addressed during [...] Check-Out Time Diagnosis INJECTION Stevie Goodrich PA-C [facility] 4 9:08AM 9:21AM Insurance Includes: Active Insurance Policies Plan Name Member ID Group # Subscriber Relationship Effect ashly Dates 1 - [facility] [id number] NADERSELENE ESPARZA Self 10/19/2014 - Unknown Clinical Notes Includes: Clinical Notes from this encounter No Clinical Notes Recorded
--- OUTSIDE RECORDS SUMMARY | 2024-03-07 13:25 | XMS_ITS ---
Care Plan - [facility] Created on: March 07, 2024 SUSANNA ESPARZA : 1970 Sex: Female Author Name Unknown Address [address] [place] [address] Phone Organization [facility] Address [address] [place] [address] Phone Care Team Providers Care Ring Spinner Name Role Phone Jaylen CUNNINGHAM, Srinivas Barrera Unavailable [phone] ANGELIQUE CUNNINGHAM, AZALEA Primary Care Provider [phone]
[2024-03-07 13:52] VITALS: BP 106/75; PULSE 101; RESP 18; O2SAT 98; BMI 21.1
--- NOTE | 2024-03-07 14:20 | PC.NURSE ---
request sent to medical records at [facility], request signed per pt.
--- NOTE | 2024-03-07 14:49 | EXP.PAIN.OV ---
HPI Data of Consult Patient: new to practice Consult date: 03/07/24 Requesting Physician: Rossy Franks APRN Primary Care Provider: Kai Persaud MD Consult Narrative Reason for consult: Right hip pain History of present illness: Ms. Sunshine is a 53 year old female who presents today as a new patient. She is a self-referral. She does have her who is a patient with our clinic. Today she rates her pain a 5 out of 10. Patient states that she is having a lot of pain all within her right hip. She describes it as a constant aching, throbbing sensation that does go into her right groin and feels like it goes into the top of her thigh. Patient does state that the pain interferes with her ability perform activities of daily living such as cooking and cleaning. Patient does also state that she has a lot of weakness all along that right leg and that she frequently falls. She states that she did just fall yesterday and has bruises from that occurrence. Patient denies any major issues that that fall resulted in. Patient does have chronic pain throughout her low back as well as her knees. Patient has had 3 previous lumbar surgeries starting in 2013 with a revision 3 months later and her last one being in 2020. Patient is fused from her L3 to her S1. Patient does go to [facility] and has injections in her bilateral knees every [address] Womack. Patient does state that these injections really do help. She did also have stem cell treatment in her knees and that it was very beneficial however her insurance would not cover it and it was going to be 6000 [id number] every time and she chose not to go with this option. Patient is prescribed gabapentin, Flexeril and meloxicam and states it does help some. Patient has had PT in the past. Patient did recently have updated imaging of her hip. Patient does states she also has chronic lymphedema. Patient does have an upcoming trip scheduled in March that is going to require a lot of walking and she would like to see about getting an injection before she goes for this. Her Cesar has been reviewed and is appropriate. CC: Rossy Franks APRN [facility] Disclaimer: The information contained in this section may have been updated after the patient was seen, as this information can be updated by other users. Medical History (Updated 03/07/24 @ 14:54 by Rossy Franks APRN) B12 deficiency Lumbago with sciatica, left side Localized osteoarthritis of both knees Obesity, unspecified Acquired hypothyroidism Chronic eustachian tube dysfunction Fluid level behind tympanic membrane of both ears History of COVID-19 Endometriosis Hiatal hernia Arthritis History of gastroesophageal reflux (GERD) Surgical History (Updated 03/07/24 @ 14:54 by Rossy Franks APRN) S/P lumbar spinal fusion Gastric banding status History of H/O laparoscopy Family History Grandmother Family history of cancer Other Family history of myocardial infarction Family history of stroke Social History (Updated 03/07/24 @ 14:04 by Rani Miles RN) Smoking Status: Never smoker alcohol intake: never substance use type: denies use current occupational status: employed Travel in the last 8 weeks: None household members: spouse housing: house Review of Systems Review of Systems Review of systems:: pertinent systems reviewed and negative unless documented below Review of systems (narrative): Review of Systems: General: No recent weight changes, no fever, no sleep disturbances Respiratory: No cough, no shortness of air, no recurring pulmonary infections Cardiovascular/peripheral vascular: No chest pain, no palpitations, no edema, no shortness of breath Gastrointestinal: No new onset incontinence, normal bowel movements reported Genitourinary: No new onset incontinence Musculoskeletal: Right hip pain Psychiatric: [Normal mood/affect] Neurological: [Denies weakness in extremities], [denies balance issues] Meds Home Medications and Allergies Home Medications Medication Instructions Recorded Confirmed Type meloxicam 15 mg tablet (Mobic) 15 mg PO DAILY Pain 01/07/22 03/07/24 History furosemide 40 mg tablet 40 mg PO DAILY Fluid 02/07/22 03/07/24 History gabapentin 600 mg tablet 600 mg PO BID Pain 02/07/22 03/07/24 History semaglutide (weight loss) 0.25 0.25 mg SQ WEEKLY Weight loss 12/19/22 03/07/24 History mg/0.5 mL subcutaneous pen injector omeprazole 20 mg capsule,delayed 20 mg PO BID 02/11/23 03/07/24 History release levothyroxine 50 mcg tablet 50 mcg PO DAILY 08/11/23 03/07/24 History cyclobenzaprine 10 mg tablet 10 mg PO BID PRN Muscle Spasm #20 10/16/23 03/07/24 Rx tabs drospiren-e.estrad-l.mefol 3 1 tab PO DAILY hormone replacement 02/29/24 03/07/24 Rx mg-0.02 mg-0.451 mg(24)/0.451 #84 tabs mg(4)tablet spironolactone 100 mg tablet 100 mg PO DAILY 03/07/24 03/07/24 History New Prescriptions to Start Prescriptions: Allergies Allergy/AdvReac Type Severity Reaction Status Date / Time No Known Allergies Allergy Verified 08/11/23 14:22 Objective Vital signs: Pulse Resp BP Pulse Ox O2 Del Method 101 H 18 106/75 L 98 Room Air 03/07/24 13:52 03/07/24 13:52 03/07/24 13:52 03/07/24 13:52 03/07/24 13:52 Narrative: Physical Exam: General: Alert and oriented x3, no acute distress, pleasant and cooperative Lungs: Respirations even and unlabored, symmetrical chest expansion Eyes: PERRL Musculoskeletal: Flexion and extension of right hip somewhat guarded secondary to pain, [antalgic gait noted] Neurological: Speech clear, no gross sensory deficit Assessment and Plan *Assessment and plan (1) Right hip pain: Status: Acute Category: Medical Code(s): M25.551 - Pain in right hip (2) Degenerative disc disease, lumbar: Status: Acute Category: Medical Code(s): M51.36 - Other intervertebral disc degeneration, lumbar region (3) History of lumbar fusion: Status: Acute Category: Surgical Code(s): Z98.1 - Arthrodesis status Plan Patient is experiencing worsening pain in her right hip with limited range of motion. I discussed with the patient that she may benefit from a right hip intra-articular injection. Risk and benefits were discussed with patient and she would like to proceed forward with this plan of care. I will also order the patient a compounded cream. Patient will be scheduled for a right hip intra-articular injection under fluoroscopy. Patient has tried and failed conservative treatment including continued at home exercising and stretching for longer than 6 weeks. Patient has been instructed to contact the clinic with any concerns before the next appointment. Dr. Garcia has reviewed this note and agrees with this plan of care. This note was dictated using voice recognition software and make contain errors or omissions.
== END 2024-03-07 23:59 | disposition home or self-care (01) ==
LOC: SC.PAIN 13:23
PROVIDERS: PCP Internal Medicine; Visit Provider Nurse Practitioner Family
DX: M25.551 Pain in right hip (principal); M51.36 Other intervertebral disc degeneration, lumbar region; Z98.1 Arthrodesis status
CPT/HCPCS: 99202; G0463

== ENCOUNTER 2024-03-22 10:46 | Day surgery (SDC) | payer BC, SELFPAY ==
[2024-03-22 11:00] VITALS: BP 107/75; PULSE 76; RESP 18; TEMP 36.7; O2SAT 99; BMI 21.1
[2024-03-22 11:04] VITALS: BP 124/80; PULSE 63; PULSE 67; RESP 18; O2SAT 97
[2024-03-22] MEDS: BUPIVACAINE 0.25% 10ML INJ 25 MG IJ (11:06)
[2024-03-22] MEDS: LIDOCAINE 1% 5ML PF VIAL 5 ML (11:07)
[2024-03-22] MEDS: methylPREDNISolone ACETATE 80MG/ML VIAL 80 MG (11:08)
[2024-03-22 11:12] VITALS: BP 119/77; PULSE 76; RESP 18; TEMP 36.7; O2SAT 99
--- NOTE | 2024-03-22 11:12 | P.PCN_ITS ---
Procedure Date: 03/22/24 Time: 11:00 Anesthesiologist:: Bruce Albright CRNA Complications:: None Pre-procedure Diagnosis:: DJD right hip. Chronic right hip pain. Post-procedure Diagnosis:: Same. Indications for Procedure:: Patient is a pleasant 53-year-old female comes our clinic today for right intra- articular hip injection. She describes her right hip pain as aching, throbbing sensation that goes into her right groin. She rates the pain 7/10. Procedure Details:: Details of the procedure were explained to the patient. The patient was taken to procedure room placed in the supine position. The area over the right hip was cleaned using chlorhexidine as a cleansing solution. Using fluoroscopy guidance a 3 and half inch 22-gauge spinal needle was used to access the right hip joint without difficulty. After negative aspiration 3 cc of 1% lidocaine +3 cc of 0.25% Marcaine and 40 mg of Depo-Medrol was injected. Needle was withdrawn. Band-Aid applied. Patient tolerated procedure without difficulty. There are no complications. Plan and Disposition:: Patient was discharged without incident.
== END 2024-03-22 11:12 | disposition home or self-care (01) ==
PROVIDERS: PCP Internal Medicine; Visit Provider Nurse Anesthetist, Certified Registered
DX: M16.11 Unilateral primary osteoarthritis, right hip (principal); M25.551 Pain in right hip; G89.29 Other chronic pain
CPT/HCPCS: 20610; 77002; J1010

== ENCOUNTER 2024-10-27 16:45 | Outpatient (CLI) | payer BC, SELFPAY | END 2024-10-27 23:59 | disposition home or self-care (01) | LOC: LAB.DROPOF 10-28 10:23 | PROVIDERS: PCP Internal Medicine; Visit Provider Internal Medicine | DX: J06.9 Acute upper respiratory infection, unspecified (principal) | CPT/HCPCS: 87635 ==

== ENCOUNTER 2025-09-06 12:57 | Outpatient (CLI) | payer BC, SELFPAY ==
[2025-09-06 08:56] VITALS: BMI 20.3
--- NOTE | 2025-09-06 13:13 | XR_ITS ---
FINAL REPORT CLINICAL HISTORY: pre operative exam Acquired hypothyroidism Family history of myocardial infarction FINDINGS: 2 views of the chest were obtained . The heart is normal in size. The mediastinum is within normal limits. The lungs are hyperinflated with likely underlying emphysema. Lungs otherwise clear. There is no pneumothorax. Osseous structures are unremarkable. IMPRESSION: No acute cardiopulmonary process. Reviewed, Interpreted and Dictated by Zoya Mahajan MD Transcribed by Chantal Hughes Authenticated and [facility] [place]
--- NOTE | 2025-09-06 13:46 | ECG_ITS ---
APPROVED REPORT Exam: Resting ECG HR:87 bpm ECG Measurements Heart Rate 87 AXES VA 188 P 73 QRSd 67 QRS 8 QT 343 T 68 QTc 388 Conclusion SINUS RHYTHM Atrial abnormality Late R wave progression - nonspecific anterior ST changes ABNORMAL ECG UNCONFIRMED REPORT Electronically signed by : Arjun Cruz MD 09/07/2025 08:29:34
--- OUTSIDE RECORDS SUMMARY | 2025-09-06 13:51 | XMS_ITS | Clinical Summary ---
Author Organization [facility] Address [address] [place] [address] Phone Care Team Providers Care Typewriter Operator Automatic Name Role Phone Jaylen CUNNINGHAM, Srinivas Barrera Unavailable [phone] AZALEA MERINO MD Primary Care Provider [phone] Reason for Referral Date Encounter Description Provider Reason for Referral 12/29/24 Follow Up Stevie Goodrich PA-C Refer ral To Physician Reason for Visit and Chief Complaint The Chief Complaint is: Bilateral knee pain Problems Includes: Problems addressed during this encounter and other active Problems All Visits Onset Date Resolved Date Provider Condition S tatus Joint Pain Hip Right 02/07/2021 Stefano Sanchez MD Active Last Documented On 1 1:35PM ; [facility] Joint Pain Knee 02/07/2016 Stefano hurley MD Active Last Documented On 6 3:35PM ; [facility] Plan of Treatment Both knees were prepped with 3 betadine swabs and an alcohol swab. [1cc 40mg Kenolog mixed with Marcaine and lidocaine up to 5mL, each knee getting the same amount] were then injected into the knees with good fill, patient tolerated procedure well. Hemostasis was obtained with a band-aid. Patient is still getting significant improvement with the q.3 months cortisone injections. Follow up in the office in 3 months for repeat injections. Continue with Mobic 15 mg p.o. daily - Last Documented On 01/05/2025 10:00AM ; [facility] Future Appointments Date Time Location Provi carey INJECTION 10/31/2025 3:30PM [facility] Stevie Goodrich PA-C Last Documented On 5 9:05AM ; [facility] Assessments Includes: Assessments from this encounter Findings Severe bilateral knee OA - Last Documented On 01/05/2025 10:00AM ; [facility] Medical Equipment - Implanted Devices Includes: Current Devices No Medical Equipment Recorded Medications Includes: Medications discussed during this encounter and other current Medications Current Medications (continue as prescribed) [facility] Glucosamine HCl Oral Tablet 10/25/2020 Provider: Diagnosis: Last Documented On 1 1:32PM By Susanne Quiroz ; [facility] Mobic 15 MG Oral Tablet 10/25/2020 Provider: Diagnosis: Last Documented On 1 1:33PM By Susanne Quiroz ; [facility] Spironolactone 25 MG Oral Tablet 10/25/2020 Provider : Diagnosis: Last Documented On 1 1:33PM By Susanne Quiroz ; [facility] Beyaz 3-0.02-0.451 MG Oral Tablet 10/25/2020 Provide r: Diagnosis: Last Documented On 1 1:33PM By Susanne Quiroz ; [facility] Gabapentin 300 MG Oral Capsule 10/25/2020 Provider: Diagnosis: Last Documented On 1 1:33PM By Susanne Quiroz ; [facility] Lasix 20 MG Oral Tablet 10/25/2020 Provider: Diagnosis: Last Documented On 1 1:34PM By Susanne Quiroz ; [facility] Medications Administered Includes: Administered Medications from this encounter No Administered Medications Recorded Vital Signs Includes: Vital Signs from this encounter Vital Name 01/02/2025 04:21P Height (in) 69 Weight (lb) 177 Body Mass Index 26.1 Body Surface Area 2 Note: sv Last Documented: On 01/02/2025 4:21PM ; [facility] Results Includes: Results discussed during this encounter No Results Recorded For Specified Dates History of Present Illness Includes: History of Present Illness from this encounter ANABEL Sunshine is a 54 year old female. - Allergy list reviewed - Problem list reviewed - Medication reconciliation performed - Medication list reviewed with patient Social History Description Last Updated Non-smoker 07/12/2020 Last Documented On 5 9:56AM ; [facility] Caffeine use 08/07/2016 Last Documented On 5 9:56AM ; [facility] Exercising regularly 08/07/2016 Last Documented On 5 9:56AM ; [facility] Not a current smoker 08/07/2016 Last Documented On 5 9:56AM ; [facility] Not using alcohol 08/07/2016 Last Documented On 5 9:56AM ; [facility] Not using drugs 08/07/2016 Last Documented On 5 9:56AM ; [facility] Recent change in diet Low-Carb 6 Last Documented On 5 9:56AM ; [facility] No tobacco use 09/18/2014 Last Documented On 5 9:56AM ; [facility] Smoking status : Never smoker 09/18/2014 Last Documented On 5 9:56AM ; [facility] Procedures and Surgical History Includes: Procedures from this encounter Procedures Code Diagnosis Performing Provider Service Location Service Date DRAIN/INJECT, JOINT/BURSA (Bilateral Procedure) Bilateral primary osteoarthritis of knee Stevie Goodrich PA-C [facility] 12/29/2024 Last Documented On 5 12:03PM ; [facility] Triamcinolone/Kenalog, 10mg per cc [id number] Bilateral primary osteoarthritis of knee Stevie Goodrich PA-C [facility] 12/29/2024 Last Documented On 5 12:03PM ; [facility] X-RAY EXAM KNEE 4 OR MORE (Bilateral Procedure) [id number] Bilateral primary osteoarthritis of knee Stevie Kp FATIMA [facility] 12/29/2024 Last Documented On 5 12:03PM ; [facility] use of tobacco assessment performed 1000F Last Documented On 5 9:56AM ; [facility] referral to physician Last Documented On 5 9:56AM ; [facility] Clinical summary provided to patient Last Documented On 5 9:56AM ; [facility] Surgical History Last Updated History of back surgery 2014- X2 (L4-L5) - Nerve 08/07/2016 Last Documented On 5 9:56AM ; [facility] Medical History Includes: Medical History addressed during this encounter Description Last Updated History of osteoporosis 01/05/2020 Last Documented On 5 9:56AM ; [facility] [id number] ~Syq-Mail-892 9 ~Gastric Sleeve-2014 ~Laproscopy-2004 ~Lasix-2010 ~Heartburn 08/07/2016 Last Documented On 5 9:56AM ; [facility] Arthritic joint problems 08/07/2016 Last Documented On 5 9:56AM ; [facility] A recent injection 08/07/2016 Last Documented On 5 9:56AM ; [facility] Family History Includes: Family History addressed during this encounter Description Last Updated Family history of hypertension 0 Last Documented On 5 9:56AM ; [facility] Family history of osteoporosis 0 Last Documented On 5 9:56AM ; [facility] Family history of thromboembolic disease 01/05/2020 Last Documented On 5 9:56AM ; [facility] Stoke- Father 08/07/2016 Last Documented On 5 9:56AM ; [facility] Maternal history of family history of he art disease 08/07/2016 Last Documented On 5 9:56AM ; [facility] Maternal history of hypertension 016 Last Documented On 5 9:56AM ; [facility] Maternal history of thromboembolic disea se 08/07/2016 Last Documented On 5 9:56AM ; [facility] Review of Systems Includes: Review of Systems from this encounter Systemic: Not feeling tired, no recent weight loss, and no recent weight gain. No edema. Head: No headache and no sinus pain. Eyes: No vision problems and no glaucomatous visual field defect. Otolaryngeal: No hearing loss and no tinnitus. No nasal symptoms. Cardiovascular: No chest pain or discomfort and no palpitations. Pulmonary: No daytime asthma symptoms, no cough, and no chronic cough. No wheezing. Gastrointestinal: No heartburn and no abdominal pain. Endocrine: No hot flashes and no muscle weakness. Hematologic: No easy bleeding. A tendency for easy bruising. Musculoskeletal: Lower back pain. No soft tissue swelling. Pain localized to one or more joints Hip-Bursitis. Neurological: No dizziness, no convulsions, and no numbness. Psychological: No anxiety, no emotional lability, no depression, and no insomnia. Not crying for no reason. Skin: No dry skin, no rash, and no ulcers. Allergic and Immunologic: No complaint of seasonal allergic reaction. Mental Status Includes: Mental Status from this encounter Description No anxiety Functional Status Includes: Functional Status from this encounter No Functional Status Recorded Physical Exam Includes: Physical Exam from this encounter Allergies Includes: Active Allergies No Known Allergies Encounters Encounter Provider Location Date Check-In Time Check-Out Time Diagnosis Follow Up Stevie Goodrich PA-C [facility] 5 2:49PM 4:17PM Insurance Includes: Active Insurance Policies Plan Name Member ID Group # Subscriber Relationship Effect ashly Dates 1 - [facility] [id number] Rachel Sunshine Self 10/19/2014 - Unknown Clinical Notes Includes: Clinical Notes from this encounter * Progress note Date Encounter Last Documented by 12/29/2024 Follow Up Last documented on 01/05/2025; 10:00 AM, Stevie Goodrich PA-C; [facility] Active Problems & Conditions - Joint Pain in the Right Hip - Joint Pain, Localized in the Knee Chief Complaint The Chief Complaint is: Bilateral knee pain. Referred Here Referred by Self. History of Present Illness Rachel Sunshine is a 54 year old female. - Allergy list reviewed - Problem list reviewed - Medication reconciliation performed - Medication list reviewed with patient Current Medication - Beyaz 3-0.02-0.451 MG Oral Tablet 0 days, 0 refills - [facility] Glucosamine HCl Oral Tablet once a day 0 days, 0 refills - Gabapentin 300 MG Oral Capsule 0 days, 0 refills - Lasix 20 MG Oral Tablet 0 days, 0 refills - Mobic 15 MG Oral Tablet once a day 0 days, 0 refills - Spironolactone 25 MG Oral Tablet once a day 0 days, 0 refills Past Medical/Surgical History Reported: Medical: Arthritic joint problems. Medications: A recent injection. Diagnoses: Osteoporosis [id number] Gastric Sleeve-2014 Laproscopy-2003 Lasix-2010 Heartburn. Surgical: - Back surgery 2014- X2 (L4-L5)- Nerve Social History Current diet: Recent change in diet Low-Carb. Caffeine use: Caffeine use. Tobacco use: No tobacco use and not a current smoker. Non-smoker. Smoking status: Never smoker. Alcohol: Not using alcohol. Drug Use: Not using drugs. Habits: Exercising regularly. Allergies - No Known Allergies Family History Stoke- Father Systemic hypertension Thromboembolic disease Osteoporosis Maternal: Heart disease Systemic hypertension Thromboembolic disease Review Of Systems Systemic: Not feeling tired, no recent weight loss, and no recent weight gain. No edema. Head: No headache and no sinus pain. Eyes: No vision problems and no glaucomatous visual field defect. Otolaryngeal: No hearing loss and no tinnitus. No nasal symptoms. Cardiovascular: No chest pain or discomfort and no palpitations. Pulmonary: No daytime asthma symptoms, no cough, and no chronic cough. No wheezing. Gastrointestinal: No heartburn and no abdominal pain. Endocrine: No hot flashes and no muscle weakness. Hematologic: No easy bleeding. A tendency for easy bruising. Musculoskeletal: Lower back pain. No soft tissue swelling. Pain localized to one or more joints Hip-Bursitis. Neurological: No dizziness, no convulsions, and no numbness. Psychological: No anxiety, no emotional lability, no depression, and no insomnia. Not crying for no reason. Skin: No dry skin, no rash, and no ulcers. Allergic and Immunologic: No complaint of seasonal allergic reaction. Physical Findings - Vitals taken 01/02/2025 04:21 pm sv Height 69 in Weight 177 lbs Body Mass Index 26.1 kg/m2 Body Surface Area 2 m2 Patient alert and oriented Healthy weight Antalgic gait Right Hip ROM normal Right Knee Skin around knee clean, dry and intact Right knee range of motion 0- to 122- Strength [5/5] TA, [5/5] Gastroc, [5/5] Quad Palpable pulses DP/PT Left Hip ROM normal Left Knee Skin around knee clean, dry and intact [No] MJT, [No] LJT, [No] Pes Tenderness Left range of motion 0- to 125- Strength [5/5] TA, [5/5] Gastroc, [5/5] Quad Palpable pulses DP/PT Tests Four views of the bilateral knees taken today demonstrate severe bilateral knee DJD. Tricompartment DJD with grade 4 changes throughout. Periarticular osteophytes. Subchondral sclerosis present. Assessment Severe bilateral knee OA Therapy - Clinical summary provided to patient. - Referral to physician. Plan Both knees were prepped with 3 betadine swabs and an alcohol swab. [1cc 40mg Kenolog mixed with Marcaine and lidocaine up to 5mL, each knee getting the same amount] were then injected into the knees with good fill, patient tolerated procedure well. Hemostasis was obtained with a band-aid. Patient is still getting significant improvement with the q.3 months cortisone injections. Follow up in the office in 3 months for repeat injections. Continue with Mobic 15 mg p.o. daily Notes This dictation was done with voice recognition software and may contain errors and omissions. Practice Management Use of tobacco assessment performed. Care Team - AZALEA MERINO MD
--- OUTSIDE RECORDS SUMMARY | 2025-09-06 13:51 | XMS_ITS | Clinical Summary ---
Author Organization [facility] , [facility] Address [address] [place] [address] Phone Care Team Providers Care Die Try Out Worker Name Role Phone Jaylen CUNNINGHAM, Srinivas Barrera Unavailable [phone] AZALEA MERINO MD Primary Care Provider [phone] Reason for Visit and Chief Complaint INJECTION Problems Includes: Problems addressed during this encounter and other active Problems All Visits Onset Date Resolved Date Provider Condition S tatus Joint Pain Hip Right 02/07/2021 Stefano Sanchez MD Active Last Documented On 1 1:35PM ; [facility], [facility] Joint Pain Knee 02/07/2016 Stefano hurley MD Active Last Documented On 6 3:35PM ; [facility], [facility] Plan of Treatment Future Appointments Date Time Location Provi carey INJECTION 10/31/2025 3:30PM [facility] Stevie Goodrich PA-C Last Documented On 5 9:05AM ; [facility], [facility] Assessments Includes: Assessments from this encounter No Assessments Recorded Medical Equipment - Implanted Devices Includes: Current Devices No Medical Equipment Recorded Medications Includes: Medications discussed during this encounter and other current Medications Current Medications (continue as prescribed) [facility] Glucosamine HCl Oral Tablet 10/25/2020 Provider: Diagnosis: Last Documented On 1 1:32PM By uSsanne Quiroz ; [facility] Mobic 15 MG Oral Tablet 10/25/2020 Provider: Diagnosis: Last Documented On 1 1:33PM By Susanne Quiroz ; [facility] Spironolactone 25 MG Oral Tablet 10/25/2020 Provider : Diagnosis: Last Documented On 1 1:33PM By Susanne Quiroz ; [facility] Beyaz 3-0.02-0.451 MG Oral Tablet 10/25/2020 Provide r: Diagnosis: Last Documented On 1 1:33PM By Susanne Quiroz ; [facility], [facility] Gabapentin 300 MG Oral Capsule 10/25/2020 Provider: Diagnosis: Last Documented On 1 1:33PM By Susanne Quiroz ; [facility], [facility] Lasix 20 MG Oral Tablet 10/25/2020 Provider: Diagnosis: Last Documented On 1 1:34PM By Susanne Quiroz ; [facility], [facility] Medications Administered Includes: Administered Medications from [...] Check-Out Time Diagnosis INJECTION Stevie Goodrich PA-C [facility] 4 3:18PM 3:33PM Insurance Includes: Active Insurance Policies Plan Name Member ID Group # Subscriber Relationship Effect ashly Dates 1 - [employer] [place] [id number] Rachel Sunshine Self 10/19/2014 - Unknown Clinical Notes Includes: Clinical Notes from this encounter No Clinical Notes Recorded
--- OUTSIDE RECORDS SUMMARY | 2025-09-06 13:51 | XMS_ITS | Clinical Summary ---
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 Name Role Phone Jaylen CUNNINGHAM, Srinivas Barrera Unavailable [phone] AZALEA MERINO MD Primary Care Provider [phone] Reason for Visit and Chief Complaint INJECTION Problems Includes: Problems addressed during this encounter and other active Problems All Visits Onset Date Resolved Date Provider Condition S tatus Joint Pain Hip Right 02/07/2021 Stefano Sanchez MD Active Last Documented On 1 1:35PM ; [facility], [facility] Joint Pain Knee 02/07/2016 Stefano hurley MD Active Last Documented On 6 3:35PM ; [facility], [facility] Plan of Treatment Future Appointments Date Time Location Provi carey INJECTION 10/31/2025 3:30PM [facility] Stevie Goodrich PA-C Last Documented On 5 9:05AM ; [facility], [facility] Assessments Includes: Assessments from this encounter No Assessments Recorded Medical Equipment - Implanted Devices Includes: Current Devices No Medical Equipment Recorded Medications Includes: Medications discussed during this encounter and other current Medications Current Medications (continue as prescribed) [facility] Glucosamine HCl Oral Tablet 10/25/2020 Provider: Diagnosis: Last Documented On 1 1:32PM By Susanne Quiroz ; [facility] Mobic 15 MG Oral Tablet 10/25/2020 Provider: Diagnosis: Last Documented On 1 1:33PM By Susanne Quiroz ; [facility] Spironolactone 25 MG Oral Tablet 10/25/2020 Provider : Diagnosis: Last Documented On 1 1:33PM By Susanne Quiroz ; [facility], [facility] Beyaz 3-0.02-0.451 MG Oral Tablet 10/25/2020 Provide r: Diagnosis: Last Documented On 1 1:33PM By Susanne Quiroz ; [facility] Gabapentin 300 MG Oral Capsule 10/25/2020 Provider: Diagnosis: Last Documented On 1 1:33PM By Susanne Quiroz ; [facility] Lasix 20 MG Oral Tablet 10/25/2020 Provider: Diagnosis: Last Documented On 1 1:34PM By Susanne Quiroz ; [facility], [facility] Medications Administered Includes: Administered Medications from [...] primary osteoarthritis of knee Stevie Goodrich PA-C [facility] 09/29/2024 Last Documented On 4 2:15PM ; [facility] Triamcinolone/Kenalog, 10mg per cc [id number] Bilateral primary osteoarthritis of knee Stevie Goodrich PA-C [facility] 09/29/2024 Last Documented On 4 2:15PM ; [facility] Medical History Includes: Medical History addressed during [...] Check-Out Time Diagnosis INJECTION Stevie Goodrich PA-C [facility] 4 3:01PM 3:50PM Insurance Includes: Active Insurance Policies Plan Name Member ID Group # Subscriber Relationship Effect ashly Dates 1 - [facility] [place] [id number] Rhettraman Sunshine Self 10/19/2014 - Unknown Clinical Notes Includes: Clinical Notes from this encounter No Clinical Notes Recorded
--- OUTSIDE RECORDS SUMMARY | 2025-09-06 13:51 | XMS_ITS | Data Portability ---
Author Organization [facility] Address [address] [facility] [address] [place] [address] Care Team Providers Care Scientist Propagator Name Role Phone AZALEA MERINO Primary Care Provider Assessment Encounter Date Assessment Date Assessment LastModified by Organization Details LastModified Time 07/25/2021 07/25/2021 Ms. Pompa is doing well after undergoing an L3-4 laminectomy and posterior lateral fusion with pedicle screw placed at L3 and S1 only. Back and severe burning right lateral hip pain are better. She has some left anterior knee pain. This is probably from intrinsic knee issue. Her x-rays look very good. She looks good on exam. I told her that because her knees hurting so bad she can go ahead and get her intra-articular injection later in the month. She should not take any oral arthritis medicine such as meloxicam yet. I'll see her back in 6 or 8 weeks with lumbar x-rays. She will continue the bone stimulator for 6 months. She will continue the brace. She should not undergo any heavy lifting or exercises. I'll probably see her about 3 times at least in follow-up. She and her were happy with the plan. [email or web address] Not available 07/25/2021 15:16:40 10/22/2023 10/22/2023 Nurse Practitioner Visit Patient is a very pleasant 53 year old female to office, s/p L3-L4 laminectomy and L3-S1 fusion with hardware only at L3 and S1 on 06/26/[address] Samia Alvarez. She has a history of two other back surgeries that was performed by Dr. Jensen (2014). Diminished reflexes bilaterally lower extremities, with 4/5 muscle strength knee flexion. Decreased sensation to left jim/calf. Plan: No recent imaging. We will get Xray lumbar spine with flex/ext to assess for instability above fusion, along with CT L-spine to assess previous fusion and hardware, and MRI L-spine with and without contrast to assess for neural impingement/cord compression. Patient is having significant left hip pain. Will get MRI left hip to rule out any pathology. Patient would like to follow-up with Dr. Alvarez at the next visit. They will review the imaging and discuss further plan of care. Patient verbalized understanding of these instructions and is agreeable to this plan, with no further questions or concerns at this time. Not available 10/22/2023 10:23:39 11/17/2023 11/17/2023 Patient is a very pleasant 53 year old female to office, s/p L3-L4 laminectomy and L3-S1 fusion with hardware only at L3 and S1 on 06/26/[address] Samia Alvarez. She has a history of two other back surgeries that was performed by Dr. Jensen (2014). BLE reflexes 1+, with muscle strength 5/5. Imaging: MRI lumbar spine completed on 11/13/2023 at clinic Moderate foraminal narrowing at L2-L3, no central stenosis, hardware intact from previous fusion X-ray lumbar spine AP/LAT/flex/ext No instability noted hardware intact Dr. Alvarez and I reviewed the images personally and read the radiologist's report. Findings discussed in detail with patient. Plan: Dr. Alvarez has reviewed imaging with patient. Patient is continuing to improve since fall. He does not see any obvious cord compression or nerve impingement that would require surgical intervention at this time. Patient would like to proceed with physical therapy for strengthening. We will order the patient compounding cream to apply topically to her lumbar spine for pain up to 4 times daily as needed. We will also order the patient Medrol Dosepak. She is in agreement with plan of care with no further questions. She will contact the office if she has a change in symptoms. Not available 11/18/2023 07:18:52 Plan of Treatment Reminders Order Date Submit Date Provider Last Modified By Organization Details Last Modified Time Details Appointments None recorded. Lab None recorded. Referral None recorded. Procedures None recorded. Surgeries None recorded. Imaging None recorded. Medication Orders Medrol (Errol) 4 mg tablets in a dose pack 2023 024 [facility], [address], [address], 4 07:21:27 Compound Rx Alternative s Neuropathic Pain Cream 2023 024 [facility], [address], [place], [address], 4 07:20:18 Patient TargetsNo targets recorded. Patient InstructionsNo instructions recorded. Reason for Referral None Reported. Results Created Date Observation Date Name Description Value Unit Range Abnormal Flag Note LastModifiedBy Organization Detail LastModifiedTime 07/25/2007/25/2021 XR, lumbo sacra l spine , 2 or [address] [address] Yoly hodges Name: TEENA hodges : 1969 Yoly hodges 5 Orderi ng Provid er: SAMIA ALVAREZ EXAM DATE: 2020 EXAM: XR LUMBAR AP/LAT CLINIC AL INFORM ATION: Postop erativ e. IMAGES PROVID ED: AP, latera l, and coned- down views of the lumbar spine. COMPAR SHAHEEN: None. FINDIN GS AND IMPRES PRINCE: Spinal fusion is noted at L3-S1 level with pedicu lar screws and connec ting rods. Surgic al hardwa re is satisf actori ly placed . No eviden ce of loosen ing or infect ion is seen. Minima l degene rative change s are seen at the lower levels . Interp reted By: Sue Carrera MD Electr onical ly Signed By: Sue Carrera MD on 021 3:42 PM michael [facility] Radiology [facility] [address] [place] [address], [phone], 08/08/2021 10:01:11 10/08/20 21 10/08/2021 XR, lumbo sacra l spine , 2 or 3 view [place] [facility] [address] [place] [address] [place] [address] Yoly hodges Name: TEENA hodges : 1969 Yoly hodges 5 Orderi ng Provid er: SAMIA Ledesma ANTONIO EXAM DATE: 2020 EXAM: XR LUMBAR AP/LAT CLINIC AL INFORM ATION: Postop erativ e. IMAGES PROVID ED: AP, latera l, and coned- down views of the lumbar spine. COMPAR SHAHEEN: 021. FINDIN GS AND IMPRES PRINCE: Spinal fusion is noted at L3-S1 level with pedicu lar screws and connec ting rods at L3 and S1. Surgic al hardwa re is satisf actori ly placed . No eviden ce of loosen ing or infect ion is seen. Grade 3 prachi listhe sis of L5 over S1 is noted which is unchan ged as compar ed to the previo us exam. Interp reted By: Sue Carrera MD Electr onical ly Signed By: Sue Carrera MD on 2020 2:[address] Radiology [facility] [address] [place] [address], [phone], 10/29/2021 13:50:11 01/22/20 22 01/21/2022 XR, lumbo sacra l spine , 2 or 3 view [place] [address] [place] [address] Yoly hodges Name: TEENA hodges : 1969 Yoly hodges 5 Orderi ng Provid er: SAMIA Ledesma ANTONIO EXAM DATE: 2021 EXAM: XR LUMBAR AP/LAT CLINIC AL INFORM ATION: Postop erativ e. IMAGES PROVID ED: AP, latera l, and coned- down views of the lumbar spine. COMPAR SHAHEEN: None. FINDIN GS AND IMPRES PRINCE: Spinal fusion is noted at L3-S1 level with pedicu lar screws and connec ting rods. Surgic al hardwa re is satisf actori ly placed . No eviden ce of loosen ing or infect ion is seen. Other levels are normal . Interp reted By: Sue Carrera MD Electr onical ly Signed By: Sue Carrera MD on 01/22/20 22 3:11 PM [email or web address] [facility] Radiology [facility] [address] [place] [address], [phone], 02/12/2022 16:29:53 10/22/19 24 10/22/2023 XR, lumbo sacra l spine , 4 or more view [address] [place] [address] Patisilvia t Name: TEENA hodges : 1969 Patisilvia t 5 Orderi ng Provid er: SORIN DONOHUE EXAM DATE: 2023 EXAM: XR LUMBAR SPINE AP/LAT /FLEX/ EXT CLINIC AL INFORM ATION: Back pain. IMAGES PROVID ED: AP, latera l and coned- down views of the lumbar spine with additi onal latera l views in flexio n and extens ion. COMPAR SHAHEEN: 2021 FINDIN GS: Previo us L3-S1 volcanologist ior fusion . Anteri or listhe sis of L5 relati ve to S1 is unchan ged. No hardwa re loosen ing or compli cation is visibl e. Methac rylate is presen t in the L3 verteb ra. Disc spaces are well-m aintai caleb. No abnorm ality of alignm ent is seen. No instab ility is seen on flexio n or extens ion. No radiog raphic eviden ce of injury is noted. IMPRES PRINCE: Stable lumbos acral fusion . Malali gnment L5-S1. No instab ility. Interp reted By: Rigoberto Olmos MD Electr onical ly Signed By: Rigoberto Olmos MD on 10/22/19 24 11:29 AM [email or web address] [facility] Radiology [facility] [address] [place], [phone], 10/22/2023 16:23:53 11/13/19 24 11/13/2023 MRI, hip, w/o contr ast [address] [place] [address] Yoly hodges Name: TEENA hodges : 1969 Patisilvia t 5 Orderi ng Provid er: SORIN DONOHUE EXAM DATE: 2023 EXAM: MR LT HIP WITHOU T CONTRA ST HISTOR Y: Hip pain COMPAR SHAHEEN: None. The patien t did not requir e sedati on for this exam. FINDIN GS: The bones of the pelvis and left hip are normal in alignm ent. No fractu re or pathol ogic intrao sseous lesion is identi fied. There is no eviden ce of AVN or transi ent painfu l marrow edema. There are mild degene rative change s in the left hip. There are mild degene rative change s in the SI joints and pubic symphy sis. The muscle s about the left hip appear normal . There is no focal fatty infilt ration or atroph y. No discre te tendon tear is identi fied. Mild tendin osis of the gluteu s minimu s tendon . The gluteu s medias tendon has some increa sed signal near its attach ment to the greate r trocha nter which could be mild tendin itis or partia l tear. There is edemat ous change noted along the medial margin of the initia l tubero sity adjace nt to the common hamstr ing tendon . This sugges ts inflam mation in this region sugges ting partia l tear of the hamstr ing origin No soft tissue mass is identi fied. The visual ized intrap eriton eal struct ures appear normal . IMPRES PRINCE: 1. Inflam matory change s adjace nt to the common hamstr ing origin sugges ting partia l tear or strain 2. Possib le low-gr tyron tear of the attach ment of the gluteu s medius tendon Interp reted By: Rigoberto Olmos MD Electr onical ly Signed By: Rigoberto Olmos MD on 024 11:17 AM michael [facility] Radiology [facility] [address] [place], [phone], 12/17/2023 11:37:45 11/13/19 24 11/13/2023 CT, lumba r spine , w/o contr ast [place] [facility] [address] [facility] [address] Yoly t Name: TEENA hodges : 1969 Patisilvia t 5 Orderi ng Provid er: SORIN CARRANZA N EXAM DATE: 2023 EXAM: CT LUMBAR WITHOU T CONTRA ST HISTOR Y: Back pain. Previo us surger y COMPAR SHAHEEN: 021 TECHNI QUE: 1 mm direct axial slices were obtain ed throug h the lumbar spine. Comput er-gen erated axial, sagitt al, and geiger l recons tructi ons are also provid ed for interp retati on. FINDIN GS: The patien t has had fusion extend ing from L3 to S1. Anteri or listhe sis of L5 relati ve to S1 is again noted and grossl y unchan ged. Anteri or listhe sis of L3 on L4 is also again noted and not change d. Methyl methac rylate is now presen t in the L3 verteb ral body with good cluste ring noted. There is no eviden ce of fractu re. There is mild anteri or margin al osteop hytic spurri ng. No pathol ogic lesion is identi fied in the lumbar spine. The gallbl adder is filled with stones . T12-L1 : Diffus e bulge of the distal mild endpla te spurri ng. No spinal or forami nal stenos is L1-L2: There is minima l disc bulge. . There is [no centra l canal stenos is. There is no neural forami nal stenos is. L2-L3: Broad diffus e protru prince of the disc with endpla te spurri ng. At least modera te bilate ral neural forami nal stenos is is presen t. No spinal stenos is L3-L4: Broad protru prince with mild endpla te spurri ng and facet DJD. There is no substa ntial spinal or forami nal stenos is L4-L5: Prior fusion with residu al spurri ng. No spinal stenos is. There is mild bilate ral neural forami nal stenos is L5-S1: Broad disc/o steoph yte comple x. Promin ent bilate ral facet DJD. Modera te to severe bilate ral neural forami nal stenos is IMPRES PRINCE: 1. Patien t now has fusion extend ing from L3 to S1. No gross compli cation is indica bhargavi. 2. The degree of slippa ge at L3-4 and L5-S1 is unchan ged 3. Diffus e degene rative change s are presen t elsewh ere. Each level descri bed above 4. Niya fontana is Interp reted By: Rigoberto Olmos MD Electr onical ly Signed By: Rigoberto Olmos MD on 024 12:[address] Radiology [address], [phone], 12/17/2023 11:37:44 11/13/19 24 11/13/2023 MRI, lumba r spine , w/wo contr ast [place] [address] [place] [address] Patisilvia t Name: TEENA Espinoza t : 1969 Patien t 5 Orderi ng Provid er: SORIN DONOHUE EXAM DATE: 2023 EXAM: MR LUMBAR SPINE W/WO CONTRA ST HISTOR Y: Back pain. Previo us surger y COMPAR SHAHEEN: 021 The patien t did not requir e sedati on for this exam. No POC testin g for eGFR was perfor med due to absenc e of risk factor s. FINDIN GS: The patien t has eviden ce of volcanologist ior fixati on L3-S1. There is anteri or listhe sis of L3-4 and L5-S1. Grossl y stable from previo us MRI. There is now methyl methac rylate in the L3 verteb ra. No defini te hardwa re loosen ing. There is no eviden ce of fractu re. There is mild anteri or margin al osteop hytic spurri ng. No pathol ogic lesion is identi fied in the lumbar spine. The conus medull cici is normal in appear ance at the L1-L2 level. Cholel ithias is is noted. T12-L1 : Minima l diffus e bulge. L1-L2: There is a minima l disc bulge. . There is no centra l canal stenos is. There is no neural forami nal stenos is. L2-L3: There is a broad disc protru prince at this level. There is some parama gnetic artifa ct presen t. No spinal stenos is is presen t. There is modera te to severe bilate ral neural forami nal stenos is. L3-L4: Prior the fusion level. Broad protru prince with mild endpla te spurri ng. No spinal stenos is presen t. Minima l narrow ing of the left neural forame n and mild narrow ing right neural forame n. No spinal stenos is L4-L5: Prior fusion with residu al spurri ng. No spinal stenos is is noted minima l neural forami nal narrow ing. L5-S1: Broad protru prince/o steoph yte. Bilate ral facet DJD. Modera te bilate ral neural forami nal stenos is. Modera te spinal stenos is After intrav enous admini strati on of , there is no abnorm al enhanc ement in the lumbar spine. IMPRES PRINCE: 1. L3-S1 volcanologist ior fusion . There is no compli cation indica bhargavi. The malali gnment at L3-4 and L5-S1 is stable from prior MRI. Diffus e degene rative change s elsewh ere now with signif icant L3-4 forami nal stenos is Interp reted By: Rigoberto Olmos MD Electr onical ly Signed By: Rigoberto Olmos MD on 024 12:[address] Radiology [facility] [address] [place] [address], [phone], 12/17/2023 11:37:44 11/23/19 24 11/13/2023 MRI, lumba r spine , w/wo contr ast [address] [place] [address] ADDE NDUM #1 Patien t Name: TEENA hodges : 1969 Yoly hodges 5 Orderi ng Provid er: SORIN DONOHUE EXAM DATE: 2023 EXAM: MR LUMBAR SPINE W/WO CONTRA ST ADDEND UM: The report below has been modifi ed to virtua voorhees t typogr aphica l errors . Please use as final report . Please disreg javier the previo us report . Yoly hodges Name: TEENA hodges : 1969 Yoly hodges 5 Orderi ng Provid er: SORIN CARRANZA N EXAM DATE: 2023 EXAM: MR LUMBAR SPINE W/WO CONTRA ST HISTOR Y: Back pain. Previo us surger y COMPAR SHAHEEN: 021 The yoly t did not requir e sedati on for this exam. No POC testin g for eGFR was perfor med due to absenc e of risk factor s. FINDIN GS: The yoly t has eviden ce of volcanologist ior fixati on L3-S1. There is anteri or listhe sis of L3-4 and L5-S1. Grossl y stable from previo us MRI. There is now methyl methac rylate in the L3 verteb ra. No defini te hardwa re loosen ing. There is no eviden ce of fractu re. There is mild anteri or margin al osteop hytic spurri ng. No pathol ogic lesion is identi fied in the lumbar spine. The conus medull cici is normal in appear ance at the L1-L2 level. Cholel ithias is is noted. T12-L1 : Minima l diffus e bulge. L1-L2: There is a minima l disc bulge. . There is no centra l canal stenos is. There is no neural forami nal stenos is. L2-L3: There is a broad disc protru prince at this level. There is some parama gnetic artifa ct presen t. No spinal stenos is is presen t. There is modera te to severe bilate ral neural forami nal stenos is. L3-L4: Prior the fusion level. Broad protru prince with mild endpla te spurri ng. No spinal stenos is presen t. Minima l narrow ing of the left neural forame n and mild narrow ing right neural forame n. No spinal stenos is L4-L5: Prior fusion with residu al spurri ng. No spinal stenos is is noted minima l neural forami nal narrow ing. L5-S1: Broad protru prince/o steoph yte. Bilate ral facet DJD. Modera te bilate ral neural forami nal stenos is. Modera te spinal stenos is After intrav enous admini strati on of 7.[address] ([facility] [id number]), there is no abnorm al enhanc ement in the lumbar spine. IMPRES PRINCE: 1. L3-S1 volcanologist ior fusion . There is no compli cation indica bhargavi. The malali gnment at L3-4 and L5-S1 is stable from prior MRI. Diffus e degene rative change s elsewh ere now with signif icant L3-4 forami nal stenos is Interp reted By: Rigoberto Olmos MD Electr onical ly Signed By: Rigoberto Olmos MD on 11/23/19 11:36 AM ORIGIN AL REPORT Yoly hodges Name: TEENA hodges : 1969 Patien t 5 Orderi ng Provid er: SORIN DARWIN Mata EXAM DATE: 2023 EXAM: MR LUMBAR SPINE W/WO CONTRA ST HISTOR Y: Back pain. Previo us surger y COMPAR SHAHEEN: 021 The patien t did not requir e sedati on for this exam. No POC testin g for eGFR was perfor med due to absenc e of risk factor s. FINDIN GS: The patien t has eviden ce of volcanologist ior fixati on L3-S1. There is anteri or listhe sis of L3-4 and L5-S1. Grossl y stable from previo us MRI. There is now methyl methac rylate in the L3 verteb ra. No defini te hardwa re loosen ing. There is no eviden ce of fractu re. There is mild anteri or margin al osteop hytic spurri ng. No pathol ogic lesion is identi fied in the lumbar spine. The conus medull cici is normal in appear ance at the L1-L2 level. Cholel ithias is is noted. T12-L1 : Minima l diffus e bulge. L1-L2: There is a minima l disc bulge. . There is no centra l canal stenos is. There is no neural forami nal stenos is. L2-L3: There is a broad disc protru prince at this level. There is some parama gnetic artifa ct presen t. No spinal stenos is is presen t. There is modera te to severe bilate ral neural forami nal stenos is. L3-L4: Prior the fusion level. Broad protru prince with mild endpla te spurri ng. No spinal stenos is presen t. Minima l narrow ing of the left neural forame n and mild narrow ing right neural forame n. No spinal stenos is L4-L5: Prior fusion with residu al spurri ng. No spinal stenos is is noted minima l neural forami nal narrow ing. L5-S1: Broad protru prince/o steoph yte. Bilate ral facet DJD. Modera te bilate ral neural forami nal stenos is. Modera te spinal stenos is After intrav enous admini strati on of , there is no abnorm al enhanc ement in the lumbar spine. IMPRES PRINCE: 1. L3-S1 volcanologist ior fusion . There is no compli cation indica bhargavi. The malali gnment at L3-4 and L5-S1 is stable from prior MRI. Diffus e degene rative change s elsewh ere now with signif icant L3-4 forami nal stenos is Interp reted By: Rigoberto Olmos MD Electr onical ly Signed By: Rigoberto Olmos MD on 024 12:27 PM [email or web address] [facility] Radiology [address], [phone], 11/23/2023 13:15:11 Result Notes Documentation Provider Name and Address Organization Details Recorded Time Xr, Lumbosacral Spine, 2 Or 3 View : [place] [place] [address] Patient Name: RACHEL ESPARZA Patient : 1970 Patient Ordering Provider: SAMIA ALVAREZ EXAM DATE: 07/25/2021 EXAM: XR LUMBAR AP/LAT CLINICAL INFORMATION: Postoperative. IMAGES PROVIDED: AP, lateral, and coned-down views of the lumbar spine. COMPARISON: None. FINDINGS AND IMPRESSION: Spinal fusion is noted at L3-S1 level with pedicular screws and connecting rods. Surgical hardware is satisfactorily placed. No evidence of loosening or infection is seen. Minimal degenerative changes are seen at the lower levels. Interpreted By: Elmo Carrera MD A ALVAREZ MD [address] [place] [address], [phone], [facility] 08/08/2021 10:01:11 Xr, Lumbosacral Spine, 2 Or 3 View : [place] [id number] Patient Name: RACHEL ESPARZA Patient : 1970 Patient Ordering Provider: SAMIA ALVAREZ EXAM DATE: 10/08/2021 EXAM: XR LUMBAR AP/LAT CLINICAL INFORMATION: Postoperative. IMAGES PROVIDED: AP, lateral, and coned-down views of the lumbar spine. COMPARISON: 07/25/2021. FINDINGS AND IMPRESSION: Spinal fusion is noted at L3-S1 level with pedicular screws and connecting rods at L3 and S1. Surgical hardware is satisfactorily placed. No evidence of loosening or infection is seen. Grade 3 anterolisthesis of L5 over S1 is noted which is unchanged as compared to the previous exam. Interpreted By: Elmo Carrera MD A ALVAREZ MD [address] [place] [address], [phone], [facility] 10/29/2021 13:50:11 Xr, Lumbosacral Spine, 2 Or 3 View : [address] [address] Patient Name: RACHEL ESPARZA Patient : 1970 Patient Ordering Provider: SAMIA ALVAREZ EXAM DATE: 01/21/2022 EXAM: XR LUMBAR AP/LAT CLINICAL INFORMATION: Postoperative. IMAGES PROVIDED: AP, lateral, and coned-down views of the lumbar spine. COMPARISON: None. FINDINGS AND IMPRESSION: Spinal fusion is noted at L3-S1 level with pedicular screws and connecting rods. Surgical hardware is satisfactorily placed. No evidence of loosening or infection is seen. Other levels are normal. Interpreted By: Elmo Carrera MD A ALVAREZ MD [address] [place] [address], [phone], [facility] 02/12/2022 16:29:53 Xr, Lumbosacral Spine, 4 Or More View : [address] [address] Patient Name: RACHEL ESPARZA Patient : 1970 Patient Ordering Provider: ÁNGEL GAYLE EXAM DATE: 10/22/2023 EXAM: XR LUMBAR SPINE AP/LAT/FLEX/EXT CLINICAL INFORMATION: Back pain. IMAGES PROVIDED: AP, lateral and coned-down views of the lumbar spine with additional lateral views in flexion and extension. COMPARISON: 01/21/2022 FINDINGS: Previous L3-S1 posterior fusion. Anterior listhesis of L5 relative to S1 is unchanged. No hardware loosening or complication is visible. Methacrylate is present in the L3 vertebra. Disc spaces are well-maintained. No abnormality of alignment is seen. No instability is seen on flexion or extension. No radiographic evidence of injury is noted. IMPRESSION: Stable lumbosacral fusion. Malalignment L5-S1. No instability. Interpreted By: Rigoberto Oloms MD ÁNGEL GAYLE APRN [address] [place] [address], [phone], [facility] 10/22/2023 16:23:53 Mri, Hip, W/o Contrast : [address] [address] Patient Name: RACHEL ESPARZA Patient : 1970 Patient Ordering Provider: ÁNGEL GAYLE EXAM DATE: 11/13/2023 EXAM: MR LT HIP WITHOUT CONTRAST HISTORY: Hip pain COMPARISON: None. The patient did not require sedation for this exam. FINDINGS: The bones of the pelvis and left hip are normal in alignment. No fracture or pathologic intraosseous lesion is identified. There is no evidence of AVN or transient painful marrow edema. There are mild degenerative changes in the left hip. There are mild degenerative changes in the SI joints and pubic symphysis. The muscles about the left hip appear normal. There is no focal fatty infiltration or atrophy. No discrete tendon tear is identified. Mild tendinosis of the gluteus minimus tendon. The gluteus medias tendon has some increased signal near its attachment to the greater trochanter which could be mild tendinitis or partial tear. There is edematous change noted along the medial margin of the initial tuberosity adjacent to the common hamstring tendon. This suggests inflammation in this region suggesting partial tear of the hamstring origin No soft tissue mass is identified. The visualized intraperitoneal structures appear normal. IMPRESSION: 1. Inflammatory changes adjacent to the common hamstring origin suggesting partial tear or strain 2. Possible low-grade tear of the attachment of the gluteus medius tendon Interpreted By: Rigoberto Olmos MD A ALVAREZ MD [address] [place] [address], [phone] [place] [address] 12/17/2023 11:37:45 Ct, Lumbar Spine, W/o Contrast : [place] [address] Patient Name: RACHEL ESPARZA Patient : 1970 Patient Ordering Provider: ÁNGEL VARUNDEEPTI EXAM DATE: 11/13/2023 EXAM: CT LUMBAR WITHOUT CONTRAST HISTORY: Back pain. Previous surgery COMPARISON: 06/06/2021 TECHNIQUE: 1 mm direct axial slices were obtained through the lumbar spine. Computer-generated axial, sagittal, and coronal reconstructions are also provided for interpretation. FINDINGS: The patient has had fusion extending from L3 to S1. Anterior listhesis of L5 relative to S1 is again noted and grossly unchanged. Anterior listhesis of L3 on L4 is also again noted and not changed. Methylmethacrylate is now present in the L3 vertebral body with good clustering noted. There is no evidence of fracture. There is mild anterior marginal osteophytic spurring. No pathologic lesion is identified in the lumbar spine. The gallbladder is filled with stones. T12-L1: Diffuse bulge of the distal mild endplate spurring. No spinal or foraminal stenosis L1-L2: There is minimal disc bulge.. There is [no central canal stenosis. There is no neural foraminal stenosis. L2-L3: Broad diffuse protrusion of the disc with endplate spurring. At least moderate bilateral neural foraminal stenosis is present. No spinal stenosis L3-L4: Broad protrusion with mild endplate spurring and facet DJD. There is no substantial spinal or foraminal stenosis L4-L5: Prior fusion with residual spurring. No spinal stenosis. There is mild bilateral neural foraminal stenosis L5-S1: Broad disc/osteophyte complex. Prominent bilateral facet DJD. Moderate to severe bilateral neural foraminal stenosis IMPRESSION: 1. Patient now has fusion extending from L3 to S1. No gross complication is indicated. 2. The degree of slippage at L3-4 and L5-S1 is unchanged 3. Diffuse degenerative changes are present elsewhere. Each level described above 4. Cholelithiasis Interpreted By: Rigoberto Olmos MD A ALVAREZ MD [address] [place] [address], [phone] 12/17/2023 11:37:44 Mri, Lumbar Spine, W/wo Contrast : [address] [address] Patient Name: RACHEL ESPARZA Patient : 1970 Patient Ordering Provider: ÁNGEL GAYLE EXAM DATE: 11/13/2023 EXAM: MR LUMBAR SPINE W/WO CONTRAST HISTORY: Back pain. Previous surgery COMPARISON: 02/08/2021 The patient did not require sedation for this exam. No POC testing for eGFR was performed due to absence of risk factors. FINDINGS: The patient has evidence of posterior fixation L3-S1. There is anterior listhesis of L3-4 and L5-S1. Grossly stable from previous MRI. There is now methylmethacrylate in the L3 vertebra. No definite hardware loosening. There is no evidence of fracture. There is mild anterior marginal osteophytic spurring. No pathologic lesion is identified in the lumbar spine. The conus medullaris is normal in appearance at the L1-L2 level. Cholelithiasis is noted. T12-L1: Minimal diffuse bulge. L1-L2: There is a minimal disc bulge.. There is no central canal stenosis. There is no neural foraminal stenosis. L2-L3: There is a broad disc protrusion at this level. There is some paramagnetic artifact present. No spinal stenosis is present. There is moderate to severe bilateral neural foraminal stenosis. L3-L4: Prior the fusion level. Broad protrusion with mild endplate spurring. No spinal stenosis present. Minimal narrowing of the left neural foramen and mild narrowing right neural foramen. No spinal stenosis L4-L5: Prior fusion with residual spurring. No spinal stenosis is noted minimal neural foraminal narrowing. L5-S1: Broad protrusion/osteophyte. Bilateral facet DJD. Moderate bilateral neural foraminal stenosis. Moderate spinal stenosis After intravenous administration of , there is no abnormal enhancement in the lumbar spine. IMPRESSION: 1. L3-S1 posterior fusion. There is no complication indicated. The malalignment at L3-4 and L5-S1 is stable from prior MRI. Diffuse degenerative changes elsewhere now with significant L3-4 foraminal stenosis Interpreted By: Rigoberto Olmos MD A ALVAREZ MD [address] [place] [address], [phone], [facility] 12/17/2023 11:37:44 Mri, Lumbar Spine, W/wo Contrast : [address] [address] ADDENDUM #1 Patient Name: RACHEL ESPARZA Patient : 1970 Patient Ordering Provider: ÁNGEL GAYLE EXAM DATE: 11/13/2023 EXAM: MR LUMBAR SPINE W/WO CONTRAST ADDENDUM: The report below has been modified to correct typographical errors. Please use as final report. Please disregard the previous report. Patient Name: RACHEL ESPARZA Patient : 1970 Patient Ordering Provider: ÁNGEL GAYLE EXAM DATE: 11/13/2023 EXAM: MR LUMBAR SPINE W/WO CONTRAST HISTORY: Back pain. Previous surgery COMPARISON: 02/08/2021 The patient did not require sedation for this exam. No POC testing for eGFR was performed due to absence of risk factors. FINDINGS: The patient has evidence of posterior fixation L3-S1. There is anterior listhesis of L3-4 and L5-S1. Grossly stable from previous MRI. There is now methylmethacrylate in the L3 vertebra. No definite hardware loosening. There is no evidence of fracture. There is mild anterior marginal osteophytic spurring. No pathologic lesion is identified in the lumbar spine. The conus medullaris is normal in appearance at the L1-L2 level. Cholelithiasis is noted. T12-L1: Minimal diffuse bulge. L1-L2: There is a minimal disc bulge.. There is no central canal stenosis. There is no neural foraminal stenosis. L2-L3: There is a broad disc protrusion at this level. There is some paramagnetic artifact present. No spinal stenosis is present. There is moderate to severe bilateral neural foraminal stenosis. L3-L4: Prior the fusion level. Broad protrusion with mild endplate spurring. No spinal stenosis present. Minimal narrowing of the left neural foramen and mild narrowing right neural foramen. No spinal stenosis L4-L5: Prior fusion with residual spurring. No spinal stenosis is noted minimal neural foraminal narrowing. L5-S1: Broad protrusion/osteophyte. Bilateral facet DJD. Moderate bilateral neural foraminal stenosis. Moderate spinal stenosis After intravenous administration of 7.5 mL Gadavist ([facility] [id number]), there is no abnormal enhancement in the lumbar spine. IMPRESSION: 1. L3-S1 posterior fusion. There is no complication indicated. The malalignment at L3-4 and L5-S1 is stable from prior MRI. Diffuse degenerative changes elsewhere now with significant L3-4 foraminal stenosis Interpreted By: Rigoberto Olmos MD ORIGINAL REPORT Patient Name: RACHEL ESPARZA Patient : 1970 Patient Ordering Provider: ÁNGEL GAYLE EXAM DATE: 11/13/2023 EXAM: MR LUMBAR SPINE W/WO CONTRAST HISTORY: Back pain. Previous surgery COMPARISON: 02/08/2021 The patient did not require sedation for this exam. No POC testing for eGFR was performed due to absence of risk factors. FINDINGS: The patient has evidence of posterior fixation L3-S1. There is anterior listhesis of L3-4 and L5-S1. Grossly stable from previous MRI. There is now methylmethacrylate in the L3 vertebra. No definite hardware loosening. There is no evidence of fracture. There is mild anterior marginal osteophytic spurring. No pathologic lesion is identified in the lumbar spine. The conus medullaris is normal in appearance at the L1-L2 level. Cholelithiasis is noted. T12-L1: Minimal diffuse bulge. L1-L2: There is a minimal disc bulge.. There is no central canal stenosis. There is no neural foraminal stenosis. L2-L3: There is a broad disc protrusion at this level. There is some paramagnetic artifact present. No spinal stenosis is present. There is moderate to severe bilateral neural foraminal stenosis. L3-L4: Prior the fusion level. Broad protrusion with mild endplate spurring. No spinal stenosis present. Minimal narrowing of the left neural foramen and mild narrowing right neural foramen. No spinal stenosis L4-L5: Prior fusion with residual spurring. No spinal stenosis is noted minimal neural foraminal narrowing. L5-S1: Broad protrusion/osteophyte. Bilateral facet DJD. Moderate bilateral neural foraminal stenosis. Moderate spinal stenosis After intravenous administration of , there is no abnormal enhancement in the lumbar spine. IMPRESSION: 1. L3-S1 posterior fusion. There is no complication indicated. The malalignment at L3-4 and L5-S1 is stable from prior MRI. Diffuse degenerative changes elsewhere now with significant L3-4 foraminal stenosis Interpreted By: Rigoberto Olmos MD ÁNGEL GAYLE, [address] [place], [phone], [facility] 11/23/2023 13:15:11 Procedures Surgical History Date Name Laterality Status Provider Name and Address Organization Details Recorded Time tonsillectomy completed Telma JERONIMO [facility] 02/05/2021 09:13:21 Caesarean Section completed Telma Leigh [facility] 02/05/2021 09:13:29 Back Surgery completed Telma JERONIMO - [facility] 02/05/2021 09:13:39 maintenance of gastric band completed Telma JERONIMO - [facility] 02/05/2021 09:13:48 laparoscopic sleeve gastrectomy completed Telma JERONIMO - [facility] 02/05/2021 09:14:00 Imaging Results None recorded. Procedure Notes None recorded. Medical Equipment None Reported. Allergies No known drug allergies Medications Name Sig Start Date Stop Date Status Note LastModified by Organization Details LastModified Time Compound Rx Alternativ es Neuropathi c Pain Cream as directed. 2023 active Not Available Not Available Not Avai lable Compound Rx Alternativ es Neuropathi c Pain Cream Apply up to 4 times daily as needed pain affected area 2023 active Not Available Not Available Not Avai lable Compound Rx Alternativ es Neuropathi c Pain Cream active Not Available Not Available Not Available Compound Rx Alternativ es Neuropathi c Pain Cream active Not Available Not Available Not Available Compound Rx Alternativ es Neuropathi c Pain Cream Apply up to 4 times daily as needed pain affected area 2023 active Not Available Not Available Not Avai lable cyclobenza kvng 10 mg tablet Take 1 tablet 3 times a day by oral route as needed. active Not Available Not Available No t Available furosemide 40 mg tablet active Not Available Not Available Not Available Percocet 7.5 mg-325 mg tablet Take 1 tablet every 6 hours by oral route as needed. 2020 active Not Available Not Available Not Avai lable gabapentin 600 mg tablet Two times a day active Not Available Not Available No t Available azithromyc in 250 mg tablet active Not Available Not Available Not Available meloxicam 15 mg tablet active Not Available Not Available Not Available Medrol (Errol) 4 mg tablets in a dose pack Take 1 dose pk by oral route for 5 days. 2023 active Not Available Not Available Not Avai lable spironolac tone 100 mg tablet Take 1 tablet every day by oral route. active Not Available Not Available No t Available sulfametho xazole 800 mg-trimeth oprim 160 mg tablet active Not Available Not Available No t Available acyclovir 800 mg tablet active Not Available Not Available Not Available levothyrox ine 50 mcg tablet active Not Available Not Available Not Available omeprazole 20 mg capsule,de layed release active Not Available Not Available Not Available aspirin 81 mg tablet Daily active Frequency : daily;Med ication Descripti on: aspirin; Dosage:1; Route:ora l; refills:0 Not Available Not Available Not Available azelastine 137 mcg (0.1 %) nasal spray active Not Available Not Available Not Available cefdinir 300 mg capsule active Not Available Not Available Not Available cyclobenza kvng 5 mg tablet active Not Available Not Available Not Available Vitamin B-12 Daily active Duration: 10 days;Freq uency: daily;Med ication Descripti on: cyanocoba vivian; Route:ora l; refills:0 ; Quantity: 30 tablet Not Available Not Available Not Available meloxicam active Medicatio n Descripti on: meloxicam ; Route:ora l; refills:0 Not Available Not Available Not Available Fish Oil active Medicatio n Descripti on: omega-3 polyunsat urated fatty acids; Route:ora l; refills:0 Not Available Not Available Not Available Prilosec active Medicatio n Descripti on: omeprazol e; refills:0 Not Available Not Available Not Available Glucosamin e-Chondrot in Daily active Instructi ons: 2000 mg;Freque ncy: daily;Med ication Descripti on: miscellan eous; refills:0 Not Available Not Available Not Available PATRICK (28) 3 mg-0.02 mg tablet Daily active Frequency : daily;Med ication Descripti on: drospiren one-ethin yl estradiol ; Dosage:1; Route:ora l; refills:0 Not Available Not Available Not Available drospiren- e.estrad-l .mefol 3 mg-0.02 mg-0.451 mg(24)/0.4 51 mg(4)table t active Not Available Not Available Not Available Vitals Date Recorded Body height Body mass index (BMI) Body weight Systolic And Diastolic Provider Name and Address Organization Details Last Updated DateTime 10/22/2023 172.72 cm 26.5 kg/m2 27883.07 g 134/82 mm[Hg] [facility] 10/22/2023 09:18:05 Date Recorded Body height Body mass index (BMI) Body weight Systolic And Diastolic Provider Name and Address Organization Details Last Updated DateTime 11/17/2023 172.72 cm 26.5 kg/m2 54560.07 g 128/84 mm[Hg] [facility] 11/17/2023 14:00:47 Date Recorded Body height Body mass index (BMI) Body weight Systolic And Diastolic Provider Name and Address Organization Details Last Updated DateTime 01/21/2022 172.72 cm 26.5 kg/m2 07967.07 g 130/82 mm[Hg] [facility] 01/21/2022 12:51:24 Date Recorded Body height Body mass index (BMI) Body weight Systolic And Diastolic Provider Name and Address Organization Details Last Updated DateTime 07/25/2021 172.72 cm 26.5 kg/m2 90579.07 g 132/82 mm[Hg] [facility] 07/25/2021 14:25:59 Date Recorded Body height Body mass index (BMI) Body weight Systolic And Diastolic Provider Name and Address Organization Details Last Updated DateTime 10/08/2021 172.72 cm 26.5 kg/m2 93400.07 g 130/80 mm[Hg] [facility] 10/08/2021 10:52:28 Social History None recorded. Functional Status None recorded. Mental Status None recorded. Family History Relationship Description Onset Age of this Age Resolved Age Notes LastModified by Organization Details LastModified Time Unspecified Relation Aneurysm apurdie Not available 02/06/20 09:12:20 Unspecified Relation Hypertensive disorder apurdie Not available 2020 09:12:30 Unspecified Relation Epilepsy apurdie Not available 02/06/20 09:12:38 Medical History Condition Response Osteoporosis/Osteopenia Y Arthritis Y Gynecological HistoryNo gynecological history recorded. Obstetrics History GPAL:G 0 P 0 0 0 0 Past Encounters Encounter ID Performer Location Encounter Start Date Encounter Closed Date Diagnosis/Indication Diagnosis SNOMED-CT Code Diagnosis ICD10 Code Diagnosis IMO Codes Diagnosis Note [id number] TYSON WONG PA-C [facility] [address] [place] [address] 02/05/2021 08:52:21 02/05/2021 12:04:44 Lumbar radiculopathy 353225001 M54.16 [id number] BRYCE MUNGUIA PA-C [facility] [address] [place] [address] 04/30/2021 08:38:28 04/30/2021 11:01:19 Lumbar spondylolisthesis 8988811437 68901 M43.16 [id number] SAMIA ALVAREZ MD [facility] [address] [place] [address] 07/11/2021 10:06:14 07/12/2021 12:22:06 [id number] SAMIA ALVAREZ MD SURGERY SCHEDULE [address] [place] [address] 07/17/2021 08:13:28 07/17/2021 11:50:42 [id number] SAMIA ALVAREZ MD [facility] [address] [place] [address] 07/25/2021 14:09:10 07/26/2021 08:13:08 Lumbar spondylolisthesis [id number] 73897 M43.16 [id number] JOELLE NICHOLS PA-C [facility] [address] [place] [address] 10/08/2021 10:31:11 10/09/2021 08:44:21 Postoperative care [id number] Z48.89 Patient is a 50-year-ol d female status post L3-L4 laminectom y and L3-S1 fusion with hardware only at L3 and S1. Surgery performed on 06/26/21 with . Presents today for her first follow-up appointmen t. Patient is doing very well at this time. Still having numbness in the left leg but said this has actually gotten better and is the best it has been for many years. Not having any lower extremity pain. She did get bilateral knee injections which we discussed with her at her last appointmen t. She has also started doing some exercising but very lightly per our recommenda tions. Showed the patient her x-rays and gave her a printed copy to take home. We would like to see her at least one more time in 3 months with another set of AP lateral lumbar x-rays. Told her that he would decide at that time if he wanted to release her or continue seeing her. Also instructed that she should continue her bone stimulator for the next 3 months. Told her that she can back down on her Neurontin if she pleases. Also told her she can restart her arthritis medication . She is discussing switching from meloxicam to Celebrex and will discuss with her primary care physician. Told her if they are unable to prescribe this for her we can get her back on this. Instructed her to use a brace when she is out for long periods of time. Overall doing very well and she is happy with the plan above. AP lateral lumbar x-rays today at the [facility] [id number] JOELLE NICHOLS PA-C [facility] [address] [place] [address] 01/21/2022 12:45:50 01/22/2022 14:07:39 Postoperative care [id number] Z48.89 Patient is a 51-year-ol d female status post L3-L4 laminectom y and L3-S1 fusion with hardware only at L3 and S1 on 06/26/[address] Samia Alvarez. Presents today for second follow-up visit. Patient was doing very well from surgery until she fell 2 weeks ago and hit her left side. Pain is not very significan t and has already gotten better with time. She is taking Tylenol and nothing else for this. Otherwise she is very grateful and happy with the results of the surgery and has no other complaints today. Discussed case and imaging with Dr. Alvarez. Gave patient a printed copy of x-rays to take home. Overall patient has done great for the surgery aside from this recent fall. Told her this is most likely muscular in origin and she should continue to take Tylenol and can use her Flexeril that we gave her postoperat ively as well. Because she has been doing well and x-rays have remained stable we do not need to see her again in terms of this procedure and can see her as needed. Told her she can discontinu e her bone stimulator at this time. She knows to call with questions and is happy with this plan. Patient seen by myself and Dr. Alvarez today AP lateral lumbar x-rays today at the [facility] placement of hardware with no evidence of loosening or complicati on [id number] ÁNGEL GAYLE APRN [facility] [address] [place] [address] 10/22/2023 08:56:58 10/23/2023 04:43:26 Lumbar radiculopathy [id number] M54.16 Pain of hip region [address] 002 M25.559 Low back pain [id number] M54.50 [id number] ÁNGEL GAYLE APRN [facility] [address] [place] [address] 11/17/2023 13:35:30 11/19/2023 04:28:19 Lumbar radiculopathy [id number] M54.16 Health Concerns Section Related Observation LastModified by Organization Detai ls LastModified Time None Recorded Concern Status LastModified by Organization Details LastModified Time None Recorded Advance Directives Directive None Recorded Payers Insurance Date Sequence Insurance Name Policy Number Policy Landers Covered Member ID Landers Member ID Guarantor Name 11/19/2023 1 [employer] [id number] Rachel Esparza [id number] Rachel Esparza Notes Date Note Type Note Provider Name and Address Organization Details Recorded Time 07/25/2021 text/html Status post L3-4 posterior lateral fusion and laminectomy which I performed on June 26, 2021. She had previously undergone [address] Snyder. She had pedicle screws at L4 and S1. She had a high-grade L5-S1 spondylolisthesis initially and then I believe that she was extended upward. During the surgery as able to place new pedicle screws at L3. Her pedicles were tiny. I placed cement through the fenestrated screws to augment the screw purchase. The pre-existing L4 screw heads were right over the L3 pedicle sided take them out. There are this position because she has such an exaggerated lumbar lordosis. L5 was so dysplastic that it was not possible to place screws safely. I upsized to S1 screws and placed 8 mm screws which were rock solid. At this point, she's doing well. Her back pain is better. She has some severe burning of the right lateral hip. Her only complaint is left anterior knee pain. She has some numbness in the knee and a little bit in the jim. However, she thinks this is just arthritic pain from severe osteoarthritis. She gets injections in the knees frequently. She is overdue for one now complains a get one in the end of the month. She notes that the knee pain is very severe when she stands and bears weight directly on the knee and gets better when the joint gets warmed up. The pain does not radiate from the back or through the thigh. She is wearing her brace. She has a bone stimulator which I ordered. SAMIA ALVAREZ MD [address] [place] [address], [phone], [facility] 07/25/2021 15:16:59 10/08/2021 text/html ROS as noted in the HPI Patient is a 50-year-old female status post L3-L4 laminectomy and L3-S1 fusion with hardware only at L3 and S1. Surgery performed on 06/26/21 with . Presents today for her first follow-up appointment. Patient is doing very well at this time. Still having numbness in the left leg but said this has actually gotten better and is the best it has been for many years. Not having any lower extremity pain. She did get bilateral knee injections which we discussed with her at her last appointment. She has also started doing some exercising but very lightly per our recommendations. This is mostly consisted of cycling on a recumbent bike. Overall the only question she has are about further restrictions and medication use. AP lateral lumbar x-rays today at the [facility] JOELLE NICHOLS PA-C [address] [place] [address], [phone], [facility] 10/08/2021 11:17:51 01/21/2022 text/html ROS as noted in the HPI Patient is a 51-year-old female status post L3-L4 laminectomy and L3-S1 fusion with hardware only at L3 and S1 on 06/26/[address] Samia Alvarez. Presents today for second follow-up visit. Patient was doing very well from surgery until she fell 2 weeks ago and hit her left side. She passed out at her primary care physician's office and has had some left-sided pain since then. Pain is not very significant and has already gotten better with time. She is taking Tylenol and nothing else for this. She has had previous bariatric surgery so she is limited with what medication she can take. Otherwise she is very grateful and happy with the results of the surgery and has no other complaints today AP lateral lumbar x-rays today at the [facility] JOELLE NICHOLS PA-C [address] [place], [phone], [facility] 01/21/2022 13:21:18 10/22/2023 text/html ROS as noted in the HPI Patient is a very pleasant 53 year old female to office, s/p L3-L4 laminectomy and L3-S1 fusion with hardware only at L3 and S1 on 06/26/[address] Samia Alvarez. She has a history of two other back surgeries that was performed by Dr. Jensen (2013). Patient was last seen in the office on 01/21/2022. Patient says she was doing well until October 14. She slipped and fell on a [employer] ornament. Patient says she struck the right side of her body, with her right elbow taken most of the fall. The next day, the patient began to have left beltline back pain radiating into the left hip and diffusely into her left thigh, along with numbness and tingling. The patient describes loss of sensation to her leg jim and calf as chronic in nature. She says that she has had the symptoms of blood pressure Wrapped around the leg lower leg for greater than 10 years . The patient's left leg is buckling and causing her to feel as though she is going to fall. She has had frequent falls. She has to lift her leg to get in and out of a bathtub and car. On October 16, the patient went to the urgent treatment center due to worsening pain. She was given Toradol and corticosteroid injection. She was also given a Medrol Dosepak. She has seen improvement in her symptoms since the steroids, but wanted to follow-up in the office just for further assessment of hardware and further nerve impingement. The patient's pain is worse with sitting and standing. She does get relief when lying flat. She has used which has helped. She has tried ice which has given minimal relief. She is also taken Tylenol. She is unable to take anti-inflammatories due to history of gastric bypass surgery. She does continue with home stretching. ÁNGEL GAYLE, BRIDGE RIGGER [address] [place], [address], [facility] 10/22/2023 10:23:54 11/17/2023 text/html Patient is a very pleasant 53 year old female to office, s/p L3-L4 laminectomy and L3-S1 fusion with hardware only at L3 and S1 on 06/26/[address] Samia Alavrez. She has a history of two other back surgeries that was performed by Dr. Jensen (2013). Mrs. Esparza tripped over an ornament on 10/14/23, falling to the ground on her right side. The next day patient was having left-sided hip, groin and anterior thigh pain. Patient says her symptoms have significantly improved since her last visit 10/22/2023. At the previous visit, patient had to manually lift her left leg to get in and out of vehicles. She is able to lift her leg today. She does have some right hip pain that is new since undergoing her MRI. Patient says this pain is much like what she had before her third lumbar surgery with Dr. Alvarez. Patient is planning a trip to [place] in March. She wants to make sure she is able to tolerate prolonged walking for her trip. ÁNGEL GAYLE, BRIDGE RIGGER [address] [place], [address], [facility] 11/18/2023 07:28:43 OBGyn Episode No OBEpisode recorded.
--- OUTSIDE RECORDS SUMMARY | 2025-09-06 13:51 | XMS_ITS | Clinical Summary ---
Author Organization [facility] , [facility] Address [address] [place] [address] Phone Care Team Providers Care Security Guards Dispatcher Name Role Phone Jaylen CUNNINGHAM, Srinivas Barrera Unavailable [phone] AZALEA MERINO MD Primary Care Provider [phone] Reason for Visit and Chief Complaint INJECTION Problems Includes: Problems addressed during this encounter and other active Problems All Visits Onset Date Resolved Date Provider Condition S tatus Joint Pain Hip Right 02/07/2021 Stefano Sanchez MD Active Last Documented On 1 1:35PM ; [facility], [facility] Joint Pain Knee 02/07/2016 Stefano hurley MD Active Last Documented On 6 3:35PM ; [facility], [facility] Plan of Treatment Future Appointments Date Time Location Provi carey INJECTION 10/31/2025 3:30PM [facility] Stevie Goodrich PA-C Last Documented On 5 9:05AM ; [facility], [facility] Assessments Includes: Assessments from this encounter No Assessments Recorded Medical Equipment - Implanted Devices Includes: Current Devices No Medical Equipment Recorded Medications Includes: Medications discussed during this encounter and other current Medications Current Medications (continue as prescribed) [facility] Glucosamine HCl Oral Tablet 10/25/2020 Provider: Diagnosis: Last Documented On 1 1:32PM By Susanne Quiroz ; [facility] Mobic 15 MG Oral Tablet 10/25/2020 Provider: Diagnosis: Last Documented On 1 1:33PM By Susanne Quiroz ; [facility] Spironolactone 25 MG Oral Tablet 10/25/2020 Provider : Diagnosis: Last Documented On 1 1:33PM By Susanne Quiroz ; [facility] Beyaz 3-0.02-0.451 MG Oral Tablet 10/25/2020 Provide r: Diagnosis: Last Documented On 1 1:33PM By Susanne Quiroz ; [facility] Gabapentin 300 MG Oral Capsule 10/25/2020 Provider: Diagnosis: Last Documented On 1 1:33PM By Susanne Quiroz ; [facility] Lasix 20 MG Oral Tablet 10/25/2020 Provider: Diagnosis: Last Documented On 1 1:34PM By Susanne Quiroz ; [facility], [facility] Medications Administered Includes: Administered Medications from this [...] primary osteoarthritis of knee Stevie Goodrich PA-C [facility] 04/12/2025 Last Documented On 5 8:34AM ; [facility] Triamcinolone/Kenalog, 10mg per cc [id number] Bilateral primary osteoarthritis of knee Stevie Goodrich PA-C [facility] 04/12/2025 Last Documented On 5 8:34AM ; [facility] Medical History Includes: Medical History addressed [...] Check-In Time Check-Out Time Diagnosis INJECTION Stevie Goodrihc PA-C [facility] 06/25/202 5 10:44AM 11:16AM Insurance Includes: Active Insurance Policies Plan Name Member ID Group # Subscriber Relationship Effect ashly Dates 1 - [facility] [id number] Rhettraman Sunshine Self 10/19/2014 - Unknown Clinical Notes Includes: Clinical Notes from this encounter No Clinical Notes Recorded
--- OUTSIDE RECORDS SUMMARY | 2025-09-06 13:51 | XMS_ITS | Clinical Summary ---
Author Organization [facility] , [facility] Address [address] [place] [address] Phone Care Team Providers Care Supervisor [employer] Name Role Phone Jaylen CUNNINGHAM, Srinivas Barrera Unavailable [phone] AZALEA MERINO MD Primary Care Provider [phone] Reason for Visit and Chief Complaint INJECTION Problems Includes: Problems addressed during this encounter and other active Problems All Visits Onset Date Resolved Date Provider Condition S tatus Joint Pain Hip Right 02/07/2021 Stefano Sanchez MD Active Last Documented On 1 1:35PM ; [facility], [facility] Joint Pain Knee 02/07/2016 Stefano hurley MD Active Last Documented On 6 3:35PM ; [facility], [facility] Plan of Treatment Future Appointments Date Time Location Provi carey INJECTION 10/31/2025 3:30PM [facility] Stevie Goodrich PA-C Last Documented On 5 9:05AM ; [facility], [facility] Assessments Includes: Assessments from this encounter No Assessments Recorded Medical Equipment - Implanted Devices Includes: Current Devices No Medical Equipment Recorded Medications Includes: Medications discussed during this encounter and other current Medications Current Medications (continue as prescribed) [facility] Glucosamine HCl Oral Tablet 10/25/2020 Provider: Diagnosis: Last Documented On 1 1:32PM By Susanne Quiroz ; [facility] Mobic 15 MG Oral Tablet 10/25/2020 Provider: Diagnosis: Last Documented On 1 1:33PM By Susanne Quiroz ; [facility] Spironolactone 25 MG Oral Tablet 10/25/2020 Provider : Diagnosis: Last Documented On 1 1:33PM By Susanne Quiroz ; [facility], [facility] Beyaz 3-0.02-0.451 MG Oral Tablet 10/25/2020 Provide r: Diagnosis: Last Documented On 1 1:33PM By Susanne Quiroz ; [facility] Gabapentin 300 MG Oral Capsule 10/25/2020 Provider: Diagnosis: Last Documented On 1 1:33PM By Susanne Quiroz ; [facility], [facility] Lasix 20 MG Oral Tablet 10/25/2020 Provider: Diagnosis: Last Documented On 1 1:34PM By Susanne Quiroz ; [facility], [facility] Medications Administered Includes: Administered Medications from [...] primary osteoarthritis of knee Stevie Goodrich PA-C [facility] 07/20/2025 Last Documented On 5 3:02PM ; [facility] Triamcinolone/Kenalog, 10mg per cc [id number] Bilateral primary osteoarthritis of knee Stevie Goodrich PA-C [facility] 07/20/2025 Last Documented On 5 3:02PM ; [facility] Medical History Includes: Medical History addressed [...] Check-Out Time Diagnosis INJECTION Stevie Goodrich PA-C [facility] 5 8:26AM 9:01AM Insurance Includes: Active Insurance Policies Plan Name Member ID Group # Subscriber Relationship Effect ashly Dates 1 - [facility] [place] [id number] Rhettraman Manchandler Self 10/19/2014 - Unknown Clinical Notes Includes: Clinical Notes from this encounter No Clinical Notes Recorded
--- OUTSIDE RECORDS SUMMARY | 2025-09-06 13:51 | XMS_ITS ---
Author Organization [facility] , [facility] Address [address] [place] [address] Phone Care Team Providers Care Label Tacker Name Role Phone Jaylen CUNNINGHAM, Srinivas Barrera Unavailable [phone] ANGELIQUE CUNNINGHAM, AZALEA Primary Care Provider [phone] Reason for Referral Date Encounter Description Provider Reason for Referral 12/29/24 Follow Up Stevie Goodrich PA-C Refer ral To Physician 02/07/21 INJECTION Stefano maurer MD Referral To [...] Last Documented On 1 1:35PM ; [facility] Joint Pain Knee 02/07/2016 Stefano hurley MD Active Last Documented On 6 3:35PM ; [facility] Plan of Treatment Future Appointments Date Time Location Provi carey INJECTION 10/31/2025 3:30PM [facility] Stevie Goodrich PA-C Last Documented On 5 9:05AM ; [facility] Instructions to patient Instructions for patient See PCP for weight management Last Documented On 1 1:30PM ; [facility] Instructions for patient See PCP for weight [...] 1 1:32PM By Susanne Quiroz ; [facility] Mobic 15 MG Oral Tablet 10/25/2020 Provider: Diagnosis: Last Documented On 1 1:33PM By Susanne Quiroz ; [facility], [facility] Spironolactone 25 MG Oral Tablet 10/25/2020 Provider : Diagnosis: Last Documented On 1 1:33PM By Susanne Quiroz ; [facility], [facility] Beyaz 3-0.02-0.451 MG Oral Tablet 10/25/2020 Provide r: Diagnosis: Last Documented On 1 1:33PM By Susanne Quiroz ; [facility], [facility] Gabapentin 300 MG Oral Capsule 10/25/2020 Provider: Diagnosis: Last Documented On 1 1:33PM By Susanne Quiroz ; [facility], [facility] Lasix 20 MG Oral Tablet 10/25/2020 Provider: Diagnosis: Last Documented On 1 1:34PM By Susanne Quiroz ; [facility] Past Medications on file [facility] MSM 1000MG Oral Capsule 06/03/2018 - 01/05/2020 Pr ovider: Diagnosis: Last Documented On 0 8:58AM By Luba Maher ; [facility] Mobic 15 MG Tablet 08/07/2016 - 10/25/2020 Provider: Diagnosis: Last Documented On 1 1:33PM By Susanne Quiroz ; [facility] Spironolactone 25 MG Tablet 08/07/2016 - 10/25/2020 Pr ovider: Diagnosis: Last Documented On 1 1:33PM By Susanne Quiroz ; [facility], [facility] Glucosamine HCl Tablet 08/07/2016 - 10/25/2020 Pro vider: Diagnosis: Last Documented On 1 1:32PM By Susanne Quiroz ; [facility], [facility] Lilia Magnesium-Potassium 250-100 MG Tablet 08/07/2016 - 01/05/2020 Provider: Diagnosis: Last Documented On 0 8:58AM By Luba Maher ; [facility] Gabapentin 300 MG OR CAPS 09/18/2014 - 10/25/2020 Prov ider: Diagnosis: Last Documented On 1 1:33PM By Susanne Quiroz ; [facility] CeleBREX 200 MG OR CAPS 09/18/2014 - 08/07/2016 Provid er: Diagnosis: Last Documented On 6 10:00AM By Jocelyn Will ; [facility] Beyaz 3-0.02-0.451 MG OR TABS 09/18/2014 - 10/25/2020 Provider: Diagnosis: Last Documented On 1 1:33PM By Susanne Quiroz ; [facility] Belviq 10 MG OR TABS 09/18/2014 - 08/07/2016 Provider: Diagnosis: Last Documented On 6 9:59AM By Jocelyn Will ; [facility], [facility] Lasix 20 MG OR TABS 09/18/2014 - 10/25/2020 Provider: Diagnosis: Last Documented On 1 1:34PM By Susanne Quiroz ; [facility], [facility] Medications Administered Includes: Administered Medications in patient's chart No Administered Medications Recorded Vital Signs Includes: Vital Signs from 09/06/2024 through 09/06/2025 Vital Name 01/02/2025 04:21P Height (in) 69 Weight (lb) 177 Body Mass Index 26.1 Body Surface Area 2 Note: sv Last Documented: On 01/02/2025 4:21PM ; [facility], [facility] Results Includes: Results from 09/06/2024 through 09/06/2025 No Results Recorded For Specified Dates History of Present Illness History of Present Illness not supported for this document type No History of Present Illness Recorded Social History Description Last Updated Non-smoker 07/12/2020 Last Documented On 0 4:28PM ; [facility], [facility] Caffeine use 08/07/2016 Last Documented On 6 8:56AM ; [facility], [facility] Exercising regularly 08/07/2016 Last Documented On 6 8:56AM ; [facility], [facility] Not a current smoker 08/07/2016 Last Documented On 6 8:56AM ; [facility], [facility] Not using alcohol 08/07/2016 Last Documented On 6 8:56AM ; [facility], [facility] Not using drugs 08/07/2016 Last Documented On 6 8:56AM ; [facility], [facility] Recent change in diet Low-Carb 6 Last Documented On 6 8:56AM ; [facility], [facility] No tobacco use 09/18/2014 Last Documented On 4 10:07AM ; [facility], [facility] Smoking status : Never smoker 09/18/2014 Last Documented On 4 10:07AM ; [facility], [facility] Procedures and Surgical History Includes: Procedures from 09/06/2024 through 09/06/2025 Procedures Code Diagnosis Performing Provider Service Location Service Date Triamcinolone/Ke nalog, 10mg per cc J3301 Bilateral primary osteoarthritis of knee Stevie Goodrich PA-C [facility] 07/20/2025 Last Documented On 5 3:02PM ; [facility], [facility] DRAIN/INJECT, JOINT/BURSA (Bilateral Procedure) Bilateral primary osteoarthritis of knee Stevie Goodrich PA-C [facility] 07/20/2025 Last Documented On 5 3:02PM ; [facility] Triamcinolone/Kenalog, 10mg per cc [id number] Bilateral primary osteoarthritis of knee Stevie Goodrich PA-C [facility] 04/12/2025 Last Documented On 5 8:34AM ; [facility] DRAIN/INJECT, JOINT/BURSA (Bilateral Procedure) Bilateral primary osteoarthritis of knee Stevie BARGER-C [facility] 04/12/2025 Last Documented On 5 8:34AM ; [facility], [facility] Triamcinolone/Kenalog, 10mg per cc [id number] Bilateral primary osteoarthritis of knee Stevie BARGER-C [facility] 12/29/2024 Last Documented On 5 12:03PM ; [facility] DRAIN/INJECT, JOINT/BURSA (Bilateral Procedure) Bilateral primary osteoarthritis of knee Stevie BARGER-C [facility] 12/29/2024 Last Documented On 5 12:03PM ; [facility], [facility] X-RAY EXAM KNEE 4 OR MORE (Bilateral Procedure) 85209 Bilateral primary osteoarthritis of knee Stevie BARGER-C [facility] 12/29/2024 Last Documented On 5 12:03PM ; [facility], [facility] DRAIN/INJECT, JOINT/BURSA (Bilateral Procedure) Bilateral primary osteoarthritis of knee Stevie BARGER-C [facility] 09/29/2024 Last Documented On 4 2:15PM ; [facility], [facility] Triamcinolone/Kenalog, 10mg per cc J3301 Bilateral primary osteoarthritis of knee Stevie Goodrich PA-C [facility] 09/29/2024 Last Documented On 4 2:15PM ; [facility], [facility] Surgical History Last Updated History of back surgery 2014- X2 (L4-L5) - Nerve 08/07/2016 Last Documented On 6 8:56AM ; [facility] Medical History Includes: Medical History in patient's chart Description Last Updated History of osteoporosis 01/05/2020 Last Documented On 0 11:38AM ; [facility], [facility] M-Xynqonk-[id number] ~Wzw-Rebt-874 9 ~Gastric Sleeve-2014 ~Laproscopy-2004 ~Lasix-2010 ~Heartburn 08/07/2016 Last Documented On 6 8:56AM ; [facility] Arthritic joint problems 08/07/2016 Last Documented On 6 8:56AM ; [facility] A recent injection 08/07/2016 Last Documented On 6 8:56AM ; [facility], [facility] Family History Includes: Family History in patient's chart Description Last Updated Family history of hypertension 0 Last Documented On 0 11:38AM ; [facility] Family history of osteoporosis 0 Last Documented On 0 11:38AM ; [facility] Family history of thromboembolic disease 01/05/2020 Last Documented On 0 11:38AM ; [facility] Stoke- Father 08/07/2016 Last Documented On 6 8:56AM ; [facility] Maternal history of family history of he art disease 08/07/2016 Last Documented On 6 8:56AM ; [facility] Maternal history of hypertension 016 Last Documented On 6 8:56AM ; [facility] Maternal history of thromboembolic disea se 08/07/2016 Last Documented On 6 8:56AM ; [facility] Review of Systems Review of Systems [...] Patient Last Documented On 1 1:37PM ; [facility] PCV (Pneumovax 23) 1 10/25/2020 Complete (Refused - Patient objection) [facility] Last Documented On 1 1:37PM ; [facility] Allergies Includes: Active, inactive, and resolved Allergies No Known Allergies Encounters Includes: Encounters from 09/06/2024 through 09/06/2025 Encounter Provider Location Date Check-In Time Check-Out Time Diagnosis INJECTION Stevie Goodrich PA-C [facility] 5 8:26AM 9:01AM INJECTION Stevie Goodrich PA-C [facility] 5 10:44AM 11:16AM Follow Up Stevie Goodrich PA-C [facility] 5 2:49PM 4:17PM INJECTION Stevie Goodrich PA-C [facility] 4 3:01PM 3:50PM Insurance Includes: Active Insurance Policies Plan Name Member ID Group # Subscriber Relationship Effect ashly Dates 1 - [facility] [id number] Rachel Sunshine Self 10/19/2014 - Unknown Clinical Notes Includes: Signed Clinical Notes starting from 10/02/2022 * Progress note Date Encounter Last Documented by 12/29/2024 Follow Up Last documented on 01/05/2025; 10:00 AM, Stevie Goodrich PA-C; [facility] Active Problems & Conditions - Joint Pain [...] problems. Medications: A recent injection. Diagnoses: Osteoporosis [id number]-[id number] Vug-Xtia-[id number] Gastric Sleeve-2015 Laproscopy-2004 Lasix-2010 Heartburn. Surgical: - Back surgery 2014- [...]
--- OUTSIDE RECORDS SUMMARY | 2025-09-06 13:51 | XMS_ITS ---
Care Plan - [facility], [facility] Created on: September 06, 2025 Rachel Sunshine : 1970 Sex: Female Author Organization [facility] Address [address] [place] [address] Phone Care Team Providers Care Seamer Name Role Phone Jaylen CUNNINGHAM, Srinivas Barrera Unavailable [phone] AZALEA MERINO MD Primary Care Provider [phone]
[2025-09-06 14:17] LABS: Hematocrit 40.2 % (37.0-47.0); Hemoglobin 13.1 g/dL (12.2-16.2); Mean Corpuscular HGB Conc 32.6 g/dL (31.8-35.4); Mean Corpuscular Hemoglobin 29.6 pg (27.0-31.2); Mean Corpuscular Volume 90.7 fl (81-99); Platelet Count 262 K/mm3 (142-424); Red Blood Count 4.43 M/mm3 (4.20-5.40); White Blood Count 5.0 K/mm3 (4.8-10.8)
[2025-09-06 14:25] LABS: HCG Qualitative, Serum Negative (Negative)
[2025-09-06 14:38] LABS: Anion Gap 11.2 mEq/L (5-15); Blood Urea Nitrogen 26 mg/dl (7-17); Calcium 9.4 mg/dl (8.4-10.2); Carbon Dioxide 23 mmol/L (22.0-30.0); Chloride 103 mmol/L (98-107); Creatinine Clearance Estimated 80 mL/min (50-200); Creatinine,Serum 0.80 mg/dl (0.52-1.04); Estimated Glomerular Filt Rate 75 ml/min (>60); GFR (African American) 91 ML/MIN (>60); Glucose 89 mg/dl (74-100); Potassium 4.2 mmoL/L (3.5-5.1); Sodium 133 mmol/L (136-145)
[2025-09-06 15:31] LABS: RBC Morphology Normal; Total Cells Counted 100
== END 2025-09-06 23:59 | disposition home or self-care (01) ==
LOC: PREOP 12:58
PROVIDERS: PCP Internal Medicine; Visit Provider Student in an Organized Health Care Education/Training Program
DX: Z01.810 Encounter for preprocedural cardiovascular examination (principal); Z01.811 Encounter for preprocedural respiratory examination; Z01.812 Encounter for preprocedural laboratory examination; R94.31 Abnormal electrocardiogram [ECG] [EKG]; E03.9 Hypothyroidism, unspecified; Z82.49 Family history of ischemic heart disease and other diseases of the circulatory system
CPT/HCPCS: 71046; 80048; 84703; 85007; 85014; 85018; 85048; 85049; 93005

== ENCOUNTER 2025-09-12 07:55 | Day surgery (SDC) | payer BC, SELFPAY ==
[2025-09-06 14:39] VITALS: BMI 20.3
[2025-09-12] VITALS (10 sets, daily range): BP systolic 120–144; BP diastolic 74–101; PULSE 78–100; RESP 16–17; TEMP 36.1–36.2; O2SAT 99–100
[2025-09-12] MEDS: LACTATED RINGERS 1000ML 1,000 ML 25 ML IV (08:17)
[2025-09-12] MEDS: OXYMETAZOLINE NASAL SPRAY 0.05% 15ML 15 ML NS (08:35)
--- NOTE | 2025-09-12 08:51 | EXP.OP.NOTE ---
Date of procedure: 09/12/25 Pre-op Diagnosis:: eustachian tube dysfunction Post-op Diagnosis:: same Procedure performed:: bilateral balloon eustachian tube dilation Surgeon:: Nelson Durand MD Anesthesia: GETA Estimated blood loss (mL): 2 Operative findings:: bilateral eustachian tube dilation Operative note:: The patient was brought to the OR, laid in the supine position, and general anesthesia was induced. Patient was prepped and draped in usual fashion. Afrin-soaked pledgets were used to decongest her naris. First starting on the left side using a 0 degree rigid endoscope her nasopharynx and eustachian tube orifice were visualized. The balloon dilator was atraumatically catheterized into the eustachian tube and then dilated for 2 minutes. There was minimal bleeding controlled with Afrin pledgets. I then went to the right side. Patient had a small right septal spur but I was able to come underneath that with the scope and balloon. I again atraumatically catheterized eustachian tube orifice and then it was dilated for 2 minutes. There was minimal bleeding again controlled with Afrin-soaked pledgets. These were all then removed. Count was confirmed correct. She was then turned back over to anesthesia to be awoken and extubated. Condition: stable Disposition: PACU Complications:: none
--- NOTE | 2025-09-12 09:01 | P.PNANES_ITS ---
[facility] Disclaimer: The information contained in this section may have been updated after the patient was seen, as this information can be updated by other users. Medical History Serous otitis media B12 deficiency Lumbago with sciatica, left side Localized osteoarthritis of both knees Obesity, unspecified Acquired hypothyroidism Chronic eustachian tube dysfunction Fluid level behind tympanic membrane of both ears History of COVID-19 Endometriosis Hiatal hernia Arthritis History of gastroesophageal reflux (GERD) Surgical History S/P lumbar spinal fusion Gastric banding status History of H/O laparoscopy Family History Grandmother Family history of cancer Other Family history of myocardial infarction Family history of stroke Social History Smoking Status: Never smoker alcohol intake: never substance use type: denies use current occupational status: employed Travel in the last 8 weeks?: None household members: spouse housing: house Have you lived/traveled outside [place] in past 30 days?: No Contact w/someone who lives/traveled outside [place] past 30 days?: No Exposure to someone with infectious disease in past 14 days?: No Do you have a fever (greater than 100.4 F or 38 C)?: No Have you tested positive for COVID-19?: No Exposed to someone with COVID-19 in past 14 days?: No Do you have a sore throat?: No Do you have a cough?: No Do you have any weakness?: No Do you have any diarrhea?: No Are you experiencing any unusual bleeding?: No Do you have any muscle aches/pain?: No Do you have any abdominal pain?: No Are you experiencing loss of taste or smell?: No [facility] Anesthesia Checklist Patient Identification Patient Identification: Arm Band Structural Data Admitted From: Home Planned Operative Procedure/s: Bilateral Eustachian Tube Dilation Consent for Planned Operative Procedure(s) Verified: Yes Verified Documents: Surgical Consent and History and Physical NPO Status Verified Time NPO: 00:00 Additional verifications Anesthesia Reactions: No Hx Blood Transfusions: No Blood Transfusion Reaction: No Airway Assessment Mallampati Score:: Class II C-Spine Mobility Assessed: Yes TMJ Mobility Assessed: Yes Dentition: Good Dentition Neurological Assessment Level of Consciousness: Awake, Alert and Appropriate Anesthesia Plan Anesthesia Risk discussed: Yes Anesthesia Plan: Verified ASA Class: II Anesthesia Type: General
--- NOTE | 2025-09-12 09:03 | EXP.ANES.I ---
[facility] Anesthesia Record Part I Anesthesia Record I Intake, IV Amount: 400 Hydration: Adequate Estimated blood loss (mL): 0 Urine output (mL): 0 Blood Products used (#): none Blood Pressure: 140/101 SaO2: 100 Pulse Rate: 95 Airway Patency: Patent Respiratory Rate: 16 Temperature: 97 F Patient is:: Stable Stable to PACU at:: 09:00
--- NOTE | 2025-09-12 10:15 | EXP.ANES.II ---
[facility] Anesthesia Record Part II Anesthesia Record Part II Discharge Time: 09:30 Destination: Surgical Day Care (OP Surgery) PACU nurse assessment reviewed?: Yes Patient Condition:: Good Anesthesia Complications:: None Swallowing reflex intact?: Yes Airway Patency: Patent Cyanosis?: No Blood Pressure: 142/91 SaO2: 100 Respiratory Rate: 16 Pulse Rate: 86 Temperature: 97 F Mental Status: Alert & Oriented Pain level:: 0 Nausea and/or vomitting:: None Intake, IV Amount: 0 Hydration: Adequate
== END 2025-09-12 10:10 | disposition home or self-care (01) ==
PROVIDERS: PCP Internal Medicine; Visit Provider Student in an Organized Health Care Education/Training Program
PROC: (CPT 69706; principal; 2025-09-12 08:00)
DX: H69.93 Unspecified Eustachian tube disorder, bilateral (principal); E03.9 Hypothyroidism, unspecified; M19.90 Unspecified osteoarthritis, unspecified site; Z86.16 Personal history of COVID-19; K21.9 Gastro-esophageal reflux disease without esophagitis; E66.9 Obesity, unspecified; M17.0 Bilateral primary osteoarthritis of knee; Z98.84 Bariatric surgery status; Z98.1 Arthrodesis status; Z79.899 Other long term (current) drug therapy; Z68.20 Body mass index [BMI] 20.0-20.9, adult
CPT/HCPCS: 69706; C1726; J1100; J2003; J2250; J2405; J2704; J3010; J7120